=== PATIENT | female | born 1995 | race Caucasian/White ===

== ENCOUNTER 2017-05-15 11:23 | Emergency (ER) | payer MEDICAID, SELFPAY ==
[2017-05-15 11:24] VITALS: BP 108/70; PULSE 130; RESP 14; TEMP 37.2; BMI 25.8
[2017-05-15] MEDS: Ondansetron 4 MG/2 ML Vial IV (12:25)
[2017-05-15] MEDS: 0.9% Normal Saline 1,000 ML 1000 ML IV (12:25)
[2017-05-15 12:55] LABS: Absolute Lymphocyte Count 0.48 X10^3/ul (0.83-4.51); Absolute Neutrophil Count 8.1 X10^3/uL (2.0-7.7); Basophil# 0.01 X10^3/uL; Basophil% 0.1 % (0-1); Eosinophil# 0.01 X10^3/uL; Eosinophils% 0.1 % (0-5); Hematocrit 40.9 % (37-47); Hemoglobin 13.3 g/dl (12.0-15.0); Lymphocyte # 0.48 X10^3/ul (4.0); Lymphocyte % 5.3 % (19-41); Mean Corp Hgb Conc 32.5 g/gl (32-36); Mean Corpuscular Hgb 27.9 pg (27.0-32.0); Mean Corpuscular Volume 85.7 fL (81-99); Mean Platelet Vol. 9.6 fl (6.2-12.0); Monocyte# 0.49 X10^3/uL; Monocyte% 5.4 % (0-10); Neutrophil # 8.07 X10^3/uL (2.7-7.7); Neutrophil % 88.9 % (47-70); Platelet Count 269 K/mm3 (150-450); RBC Distribution Width CV 14.1 % (11.6-14.6); RBC Distribution Width SD 44.1 fl (35.1-43.9); Red Blood Count 4.77 M/mm3 (4.2-5.4); White Blood Count 9.1 K/mm3 (4.4-11.0)
[2017-05-15 12:56] LABS: Differential Indicated SCAN CRITERIA MET; POSITIVE COUNT NO; POSITIVE DIFFERENTIAL YES; POSITIVE MORPHOLOGY NO
[2017-05-15 13:11] LABS: AST(SGOT) 9 U/L (15-37); Alanine Aminotransfer ALT/SGPT 19 U/L (13-56); Albumin, Serum 3.8 g/dL (3.2-5.0); Alkaline Phosphatase 50 U/L (45-117); Anion Gap 8 (5-15); BUN 13 mg/dL (7-18); BUN/Creat Ratio 16.6 RATIO (10-20); Bilirubin, Direct 0.14 mg/dL (0.00-0.30); Calcium,Total 8.9 mg/dL (8.5-10.1); Chloride 108 mmol/L (98-107); Creatinine, Serum 0.78 mg/dL (0.55-1.02); EST Glomerular Filtration Rate 97 mL/min (>60); Est Glom Filt Rate - Afr Amer 117 mL/min (>60); Estimated Creatinine Clearance 117.23 ml/min; Globulin 3.9 g/dL (2.2-4.2); Glucose 91 mg/dL (70-110); Lipase 113 U/L (73-393); Potassium 3.9 mmol/L (3.5-5.1); Protein, Total 7.7 g/dL (6.4-8.2); Sodium Level 141 mmol/L (136-145)
[2017-05-15 13:21] LABS: Pregnancy, Serum, hCG Quali. NEGATIVE Negative (0-9 Nonpreg)
[2017-05-15 13:48] LABS: Mucous, Urine 0 SEEN /hpf (<or=2+); Red Blood Cells-Urine 0 SEEN /hpf (0-5)
[2017-05-15 13:59] LABS: Color, Urine Yellow (Yellow); Glucose, Dipstick Normal (Normal); Ketone-Dipstick 15 mg/dl (Negative); Leukocyte Esterase-Dipstick 25 /ul (Negative); Nitrite-Dipstick Negative (Negative); Occult Blood-Urine Negative /ul (Negative); Protein-Dipstick Negative (Negative); Specific Gravity, Urine 1.015 (1.002-1.030); Urine Bilirubin Dipstick Negative (Negative); Urine Clarity Sl. Cloudy (Clear); Urine Urobilinogen Normal (Normal); Urine pH 6.5 (5.0 - 8.0)
[2017-05-15 14:05] LABS: Bacteria 1+ /hpf (None Seen); Squamous Epithelial Cells - UA 0-5 SEEN /hpf (5-10); White Blood Cells 0-5 SEEN /hpf (0-5)
--- NOTE | 2017-05-15 15:05 | ED.DCSUM_ITS ---
- ER Visit Summary Date of Service: 05/15/17 Chief Complaint: Vomiting/diarrhea History of Present Illness: The patient is a [address] Smith. She reports that she has vomiting diarrhea that began partly 3 AM. She is vomited approximately 12 times without blood. She had 12 episodes of diarrhea. No blood in her stools or black tarry stools. She has diffuse abdominal pain is 910 at worst and 7 out of 10 currently. Is worsened by movement or vomiting. Is relieved by remaining still. Patient has had sick contacts. Has not been camping out of the country. No possible bad food exposure. Does not drink well water. Patient was on Rocephin and Zithromax when she was hospitalized approximately 10 days ago for pneumonia. Physical Examination: Vitals: Stable. Afebrile. General: Well-nourished and well-developed. Head: Normocephalic atraumatic. Neck: Supple, no lymphadenopathy. No JVD. Nontender. Cardiovascular: Regular rate and rhythm. No murmurs. Respiratory: No respiratory distress. Clear to auscultation bilaterally. Abdominal: Soft, mild diffuse tenderness palpation at worst in the epigastric and right upper quadrants, nondistended, normal bowel sounds. No guarding, rebound, or peritoneal signs. Back: Nontender. Extremities: Nontender, no edema. Skin: Normal color, no rash. Neurologic: Alert and oriented ?3. Cranial nerves II through XII are intact. Normal strength and sensation. Psych: Normal affect. Test Results: CBC is marked for 7 neutrophils 89 and lymphocytes of 5. Chem-7 is more for chloride 108. LFTs marked for an AST of 9. Lipase normal. UA is negative. test is negative. Emergency Department Course and Treatment: She is treated with morphine and Zofran. She has had no vomiting or diarrhea while here. She is resting comfortably. Treatment Plan: Patient will be discharged with Zofran. Instructed to follow- up with her primary care physician 1-2 days if not improving. Return to the emergency department for any worsening symptoms. Disposition: To home in improved and stable condition. Impression:. Vomiting/diarrhea. This note was generated with [employer] ([employer]ation software. It may contain incorrect words, spelling, and punctuation that were not noted in review of the chart prior to signing ED Disposition - Plan for ED Patient: Disposition: Home or Assisted Living Chief Complaint: Nausea/Vomiting/Diarrhea Instructions: ED Vomiting Diarrhea Nonspecific Ad Prescriptions: Ondansetron [Zofran Odt] 4 mg PO Q8H PRN PRN #10 tablet PRN Reason: Nausea Referrals: Doctor,Your [STAFF PHYSICIAN] - 1-2 Days if not improving
[2017-05-15 15:21] VITALS: BP 105/59; PULSE 103; RESP 16; O2SAT 99
--- NOTE | 2017-05-15 15:22 | ED.RN ---
REVIEWED D/C INSTRUCTIONS, FOLLOW UP CARE, PRESCRIPTION, AND S/S THAT WOULD WARRANT A RETURN TO THE ED WITH PT. PT VERBALIZED AN UNDERSTANDING AND DENIES FURTHER QUESTIONS FOR THIS RN. PT SKIN P/W/D, RESP EVEN AND UNLABORED, PT A&O X 3, NO DISTRESS NOTED. PT AMBULATED OUT OF ED, GAIT STEADY.
== END 2017-05-15 15:23 | disposition home or self-care (01) ==
LOC: ED 12:44
PROVIDERS: Emergency Provider Emergency Medicine
DX: R19.7 Diarrhea, unspecified (principal); R11.2 Nausea with vomiting, unspecified; K21.9 Gastro-esophageal reflux disease without esophagitis; Z79.899 Other long term (current) drug therapy
CPT/HCPCS: 80048; 80076; 81001; 83690; 84703; 85025; 96361; 96374; 96375; 99283; J7050; A4216; J2405

== ENCOUNTER 2017-07-09 23:29 | Emergency (ER) | payer MEDICAID, SELFPAY ==
[2017-07-09 23:30] VITALS: BP 125/80; PULSE 78; RESP 18; TEMP 36.6; O2SAT 98; BMI 26.5
--- NOTE | 2017-07-09 23:53 | ED.DCSUM_ITS ---
- ER Visit Summary Date of Service: 07/09/17 Chief Complaint: Headache History of Present Illness: The patient is a 22 F 3 day history of migraine headache that has been waxing and waning. States the pain currently is behind her eyes and in the right parietal region. She states normally she just takes Tylenol but tonight she was vomiting and could not keep the Tylenol down. She denies recent head injury or URI symptoms. She states her migraines have been worsening since she started back on Depo shots. Physical Examination: Vital signs are unremarkable. Patient sitting upright in a darkened room. She is in no acute distress is nontoxic appearing. Head and neck examination is unremarkable with no meningismus. Heart is regular rate and rhythm. Lung sounds are clear. Abdomen is soft nontender. Neuro exam reveals normal strength and sensation throughout. Test Results: [] Emergency Department Course and Treatment: Patient was given IV fluids, Tylenol , Compazine, and Benadryl. On repeat evaluation she states her headache resolved she still had mild dystonia from the Compazine. She is given an additional 12.5 mg of Benadryl. On final re-eval patient is resting comfortably. She does report improvement. She will be given Zofran for home and she will use Tylenol as needed. Treatment Plan: [] Disposition: Discharge Impression: Migraine, improved This note was generated with [employer] dictation software. It may contain incorrect words, spelling, and punctuation that were not noted in review of the chart prior to signing ED Disposition - Plan for ED Patient: Chief Complaint: Headache Referrals: [facility] Doctor,Out of [NON-STAFF] -
[2017-07-10] MEDS: Acetaminophen 325 MG Tablet 650 MG PO (00:14)
[2017-07-10] MEDS: DiphenhydrAMINE 50 MG/ML Syringe 25 MG IV (00:14)
[2017-07-10] MEDS: proCHLORPERazine 10 MG/2 ML Vial IV (00:14)
[2017-07-10] MEDS: 0.9% Normal Saline 1,000 ML 999 ML IV (00:14)
[2017-07-10] MEDS: DiphenhydrAMINE 50 MG/ML Syringe 12.5 MG IV (00:30)
--- NOTE | 2017-07-10 01:09 | ED.DEP ---
ED Disposition - Plan for ED Patient: Disposition: Home or Assisted Living Chief Complaint: Headache Instructions: ED Headache Migraine Prescriptions: Ondansetron [Zofran Odt] 4 mg PO Q8H PRN PRN #10 tablet PRN Reason: Nausea Referrals: [facility] Doctor,Out of [NON-STAFF] -
[2017-07-10] MEDS: Ondansetron ODT 4 MG Tablet PO (01:20)
[2017-07-10 01:22] VITALS: BP 107/70; PULSE 78; RESP 16; O2SAT 98
== END 2017-07-10 01:23 | disposition home or self-care (01) ==
PROVIDERS: Emergency Provider Emergency Medicine; Family Provider Nurse Practitioner Family; PCP Nurse Practitioner Family
DX: G43.909 Migraine, unspecified, not intractable, without status migrainosus (principal); J45.909 Unspecified asthma, uncomplicated; K58.9 Irritable bowel syndrome, unspecified; N80.9 Endometriosis, unspecified; Z79.899 Other long term (current) drug therapy
CPT/HCPCS: 96361; 96374; 96375; 99283; J7030

== ENCOUNTER 2017-07-31 13:47 | Emergency (ER) | payer MEDICAID, SELFPAY ==
[2017-07-31 13:50] VITALS: BP 127/82; PULSE 72; RESP 16; TEMP 36.2; O2SAT 98; BMI 26.4
--- NOTE | 2017-07-31 14:06 | ED.VISSUMM ---
- ER Visit Summary Date of Service: 07/31/17 Chief Complaint: Right upper quadrant abdominal pain associated with nausea vomiting and diarrhea. History of Present Illness: The patient is a 22 F male history of endometriosis, irritable bowel disease and reflux. Patient states she was at work today and in the last several hours started having right upper quadrant abdominal pain associated with nausea, vomiting and diarrhea. Did have a small amount of blood mixed with her diarrhea. No hematemesis. No fever. No abdominal trauma. She has had a prior exploratory laparotomy but she still has her appendix and gallbladder. No dysuria. No vaginal bleeding or discharge. Physical Examination: Young female vital signs are stable and afebrile. She does not look septic or toxic. No acute distress. H EENT exam unremarkable. Neck nontender no lymphadenopathy. Lungs clear to auscultation bilaterally. Heart regular rhythm no murmur. Abdomen soft mild epigastric and right upper quadrant tenderness. No Snell sign. Normal bowel sounds nondistended. No hernias or masses. Right lower quadrant completely nontender. No signs of obstruction. Moving all 4 extremities. Back exam nontender no CVA tenderness. Neurologically she is awake and alert without focal motor deficits. Test Results: CBC normal. White count of 8. Chemistries normal. Normal BUN and creatinine. Liver enzymes normal. Lipase normal. Serum test negative. Emergency Department Course and Treatment: Patient will undergo a GI workup. She will receive IV fluids, morphine and Zofran. Treatment Plan: On repeat exam at 1618 the patient is doing well. Abdomen is completely benign. Nontender without peritoneal signs she is pain-free. She is no longer nauseated nor vomiting. Disposition: Discharge Impression: Acute abdominal pain Acute nausea, vomiting diarrhea secondary to viral syndrome This note was generated with [employer] software. It may contain incorrect words, spelling, and punctuation that were not noted in review of the chart prior to signing ED Disposition - Plan for ED Patient: Chief Complaint: Abd Pain Referrals: Maira Posadas NP-C [Primary Care Provider] -
[2017-07-31] MEDS: Ondansetron 4 MG/2 ML Vial IV (14:17)
[2017-07-31] MEDS: 0.9% Normal Saline 1,000 ML 1000 ML IV (14:17)
[2017-07-31] MEDS: Morphine 4 MG/ML Syringe 6 MG IV (14:17)
[2017-07-31 14:31] LABS: Basophil# 0.05 X10^3/uL; Basophil% 0.6 % (0-1); Eosinophil# 0.11 X10^3/uL; Eosinophils% 1.3 % (0-5); Hematocrit 39.5 % (37-47); Hemoglobin 12.9 g/dl (12.0-15.0); Lymphocyte % 30.9 % (19-41); Mean Corp Hgb Conc 32.7 g/gl (32-36); Mean Corpuscular Hgb 27.8 pg (27.0-32.0); Mean Corpuscular Volume 85.1 fL (81-99); Mean Platelet Vol. 9.2 fl (6.2-12.0); Monocyte% 7.1 % (0-10); Neutrophil # 5.04 X10^3/uL (2.7-7.7); Neutrophil % 59.9 % (47-70); Platelet Count 302 K/mm3 (150-450); RBC Distribution Width CV 13.7 % (11.6-14.6); RBC Distribution Width SD 42.9 fl (35.1-43.9); Red Blood Count 4.64 M/mm3 (4.2-5.4); White Blood Count 8.4 K/mm3 (4.4-11.0)
[2017-07-31 14:32] LABS: POSITIVE COUNT NO; POSITIVE DIFFERENTIAL NO; POSITIVE MORPHOLOGY NO
[2017-07-31 14:46] LABS: AST(SGOT) 11 U/L (15-37); Alanine Aminotransfer ALT/SGPT 15 U/L (13-56); Albumin, Serum 4.1 g/dL (3.2-5.0); Alkaline Phosphatase 52 U/L (45-117); Anion Gap 8 (5-15); BUN 11 mg/dL (7-18); Bilirubin, Direct 0.06 mg/dL (0.00-0.30); Calcium,Total 8.5 mg/dL (8.5-10.1); Chloride 107 mmol/L (98-107); Creatinine, Serum 0.79 mg/dL (0.55-1.02); EST Glomerular Filtration Rate 96 mL/min (>60); Est Glom Filt Rate - Afr Amer 116 mL/min (>60); Estimated Creatinine Clearance 115.75 ml/min; Glucose 75 mg/dL (74-106); Lipase 178 U/L (73-393); Potassium 3.6 mmol/L (3.5-5.1); Protein, Total 8.1 g/dL (6.4-8.2); Sodium Level 140 mmol/L (136-145)
[2017-07-31 14:50] LABS: Pregnancy, Serum, hCG Quali. NEGATIVE Negative (0-9 Nonpreg)
--- NOTE | 2017-07-31 16:20 | DCINST.ED_ITS ---
ED Disposition - Plan for ED Patient: Disposition: Home or Assisted Living Chief Complaint: Abd Pain Instructions: ED Abdominal Pain Unkn Cause Referrals: Maira Posadas NP-C [Primary Care Provider] - 3-5 Days if not improving Additional Instructions: Fluids and rest. [place] diet increase as tolerated. Return if unable to keep fluids down or worsening abdominal pain. All your lab tests were normal today in the ER
[2017-07-31 16:46] VITALS: BP 114/74; PULSE 79; RESP 16; O2SAT 97
--- NOTE | 2017-07-31 16:47 | ED.RN ---
PT DECLINED PO CHALLENGE. PT STATES MY RIDE IS ON THE WAY. I THINK I'M OK. THIS NURSE REVIEWED D/C INSTRUCTIONS WITH PT. PT VERBALIZED UNDERSTANDING OF INSTRUCTIONS. IV D/C. IV CATHETER INTACT. PT TOLERATED WELL. PT DENIES FURTHER NEEDS OR QUESTIONS AT THIS TIME. PT AMBULATES FROM ROOM ON OWN WITHOUT ASSISTANCE FROM STAFF
== END 2017-07-31 16:48 | disposition home or self-care (01) ==
PROVIDERS: Emergency Provider Emergency Medicine; Family Provider Nurse Practitioner Family; PCP Nurse Practitioner Family
DX: R10.13 Epigastric pain (principal); R10.11 Right upper quadrant pain; R11.2 Nausea with vomiting, unspecified; B34.9 Viral infection, unspecified; K58.0 Irritable bowel syndrome with diarrhea; K21.9 Gastro-esophageal reflux disease without esophagitis; Z79.899 Other long term (current) drug therapy
CPT/HCPCS: 80048; 80076; 83690; 84703; 85025; 96361; 96374; 96375; 99283; J7030; A4216; J2405

== ENCOUNTER 2017-08-25 10:38 | Emergency (ER) | payer MEDICAID, SELFPAY ==
[2017-08-25 10:40] VITALS: BP 122/75; PULSE 78; RESP 14; TEMP 36.9; O2SAT 98; BMI 26.4
--- NOTE | 2017-08-25 11:06 | ED.VISSUMM ---
- ER Visit Summary Date of Service: 08/25/17 Chief Complaint: Headache History of Present Illness: The patient is a 22 F headache and started gradually yesterday afternoon. This is right frontal and feels like prior migraines. Worse with lights. Better with Zofran. She did have one episode of nausea and vomiting. She did notice some blood in the emesis. She has a history of acid reflux. Denies any history of liver disease. Denies ulcers or abdominal pain. Denies blood in her stool. Denies blood thinner use. Denies trauma. Denies new weakness or numbness. Physical Examination: Afebrile and vital signs unremarkable. Sitting comfortably in the dark. HEENT exam unremarkable and atraumatic. Neck nontender with good range of motion. Neurologic testing unremarkable and no focal or lateralizing abnormalities were noted. Heart regular. Lungs clear. Abdomen soft. Skin appears normal without pallor. Test Results: CBC pending. Emergency Department Course and Treatment: Treated with fluids, Benadryl, and Compazine. She tolerated this in the past. There is no indication for imaging of her head. I have low suspicion regarding significant pathology given her nausea with vomiting and blood. Will check a CBC. Will reassess. She had a recent EGD within the last couple months and is being treated for acid reflux with Prilosec once a day. Patient felt better on reassessment. CBC normal. Patient will follow up with her primary doctor for migraines. She will also follow-up with her GI doctor continue medications as prescribed. Return for any new or worsening issues. Treatment Plan: Discharged Disposition:Discharged Impression: 1. Acute headache This note was generated with [employer] dictation software. It may contain incorrect words, spelling, and punctuation that were not noted in review of the chart prior to signing ED Disposition - Plan for ED Patient: Chief Complaint: Headache Referrals: Maira Posadas NP-C [Primary Care Provider] -
[2017-08-25] MEDS: proCHLORPERazine 10 MG/2 ML Vial IV (11:14)
[2017-08-25] MEDS: DiphenhydrAMINE 50 MG/ML Syringe IV (11:14)
[2017-08-25] MEDS: 0.9% Normal Saline 1,000 ML 1000 ML IV (11:14)
[2017-08-25 11:27] LABS: Absolute Lymphocyte Count 2.48 X10^3/ul (0.83-4.51); Basophil# 0.03 X10^3/uL; Basophil% 0.5 % (0-1); Eosinophils% 1.6 % (0-5); Hematocrit 40.6 % (37-47); Hemoglobin 13.5 g/dl (12.0-15.0); Lymphocyte # 2.48 X10^3/ul (4.0); Lymphocyte % 40.3 % (19-41); Mean Corp Hgb Conc 33.3 g/gl (32-36); Mean Corpuscular Volume 84.2 fL (81-99); Monocyte# 0.49 X10^3/uL; Neutrophil # 3.04 X10^3/uL (2.7-7.7); Neutrophil % 49.3 % (47-70); Platelet Count 304 K/mm3 (150-450); RBC Distribution Width CV 13.5 % (11.6-14.6); RBC Distribution Width SD 41.5 fl (35.1-43.9); Red Blood Count 4.82 M/mm3 (4.2-5.4); White Blood Count 6.2 K/mm3 (4.4-11.0)
[2017-08-25 11:28] LABS: Differential Indicated SCAN CRITERIA MET; POSITIVE COUNT NO; POSITIVE DIFFERENTIAL NO; POSITIVE MORPHOLOGY YES
--- NOTE | 2017-08-25 12:29 | ED.DEP ---
ED Disposition - Plan for ED Patient: Chief Complaint: Headache Instructions: ED Headache Migraine Referrals: Maira Posadas NP-C [Primary Care Provider] -
[2017-08-25 12:46] VITALS: BP 116/76; PULSE 82; RESP 14; O2SAT 98
== END 2017-08-25 12:46 | disposition home or self-care (01) ==
LOC: ED 11:00
PROVIDERS: Emergency Provider Emergency Medicine; Family Provider Nurse Practitioner Family; PCP Nurse Practitioner Family
DX: R51 Headache (principal); K21.9 Gastro-esophageal reflux disease without esophagitis; K58.9 Irritable bowel syndrome, unspecified; Z79.899 Other long term (current) drug therapy
CPT/HCPCS: 85025; 96361; 96374; 96375; 99283; J7030; A4216

== ENCOUNTER 2017-09-11 18:30 | Emergency (ER) | payer MEDICAID, SELFPAY ==
[2017-09-11 18:32] VITALS: BP 126/87; PULSE 93; RESP 18; TEMP 36.9; O2SAT 99; BMI 27.0
--- NOTE | 2017-09-11 18:59 | ED.DCSUM_ITS ---
- ER Visit Summary Date of Service: 09/11/17 Chief Complaint: [Insect bite] History of Present Illness: The patient is a 22 F [presents the emergency department with some sort of a bite to her left lower extremity that she noticed 2 days ago. Patient is not sure what may have bitten her. Patient is noticed that she has had increased erythema today. Patient has not felt well for a couple of days also she had vomiting 2 days ago that lasted for about 20 minutes and then resolved. She has had some intermittent diarrhea but she has a history of irritable bowel syndrome she says that happens sometimes. Patient complains of some fatigue and some intermittent headaches.] Physical Examination: [HEENT-PERRLA, EOMI. Cranial nerves II through XII grossly intact. TMs clear. Mucous membranes moist. No adenopathy. Cardiovascular-regular rate and rhythm without murmur or ectopy Lungs-clear to auscultation, chest wall stable without crepitus or subcu emphysema Abdomen-normoactive bowel sounds, soft, nontender, no rebound or rigidity, no peritoneal signs. Extremities-intact ?4, normal range of motion, normal pulses, atraumatic]. Left leg-patient has a circular area of erythema to the left lower leg measuring approximately 4 cm in diameter. Central portion of erythema slightly indurated. There is no fluctuance. There are no bull's-eye lesions. No lymphangitic streaking noted. Test Results: [None indicated] Emergency Department Course and Treatment: [Patient was started on Keflex and Bactrim. Patient advised to use Tylenol for discomfort.] Treatment Plan: [Treat with Keflex and Bactrim] Disposition: [Discharged home stable condition] Impression: [Insect bite with cellulitis] This note was generated with [employer] dictation software. It may contain incorrect words, spelling, and punctuation that were not noted in review of the chart prior to signing ED Disposition - Plan for ED Patient: Chief Complaint: Bite Referrals: Maira Posadas NP-C [Primary Care Provider] -
--- NOTE | 2017-09-11 19:00 | ED.DEP ---
ED Disposition - Plan for ED Patient: Chief Complaint: Bite Instructions: ED Sting Bite Insect Infec Prescriptions: Cephalexin [Keflex] 500 mg PO Q6 #40 cap Smz/Tmp Ds [Bactrim Ds] 1 tab PO BID #20 tab Referrals: Maira Posadas, UNIFORM ATTENDANT-C [Primary Care Provider] - 3-5 Days
[2017-09-11] MEDS: Cephalexin 250 MG Capsule 500 MG PO (19:11)
[2017-09-11] MEDS: Smz/Tmp Ds Tablet 1 TABLET PO (19:11)
== END 2017-09-11 19:16 | disposition home or self-care (01) ==
LOC: ED 19:07
PROVIDERS: Emergency Provider Emergency Medicine; Family Provider Nurse Practitioner Family; PCP Nurse Practitioner Family
DX: S80.862A Insect bite (nonvenomous), left lower leg, initial encounter (principal); L03.116 Cellulitis of left lower limb; R53.83 Other fatigue; R51 Headache; K58.9 Irritable bowel syndrome, unspecified; N80.9 Endometriosis, unspecified
CPT/HCPCS: 99283

== ENCOUNTER 2017-10-11 12:55 | Emergency (ER) | payer MEDICAID, SELFPAY ==
[2017-10-11 12:56] VITALS: BP 119/75; PULSE 89; RESP 16; TEMP 37.3; O2SAT 98; BMI 26.6
[2017-10-11] MEDS: diazePAM 5 MG Tablet PO (13:46)
[2017-10-11] MEDS: Ondansetron 4 MG/2 ML Vial IV ×2 (13:47→15:49)
[2017-10-11] MEDS: 0.9% Normal Saline 1,000 ML 1000 ML IV (13:47)
[2017-10-11 13:56] LABS: Absolute Lymphocyte Count 3.19 X10^3/ul (0.83-4.51); Absolute Neutrophil Count 3.7 X10^3/uL (2.0-7.7); Basophil# 0.03 X10^3/uL; Basophil% 0.4 % (0-1); Eosinophil# 0.08 X10^3/uL; Hematocrit 38.5 % (37-47); Hemoglobin 12.5 g/dl (12.0-15.0); Lymphocyte # 3.19 X10^3/ul (4.0); Lymphocyte % 41.4 % (19-41); Mean Corp Hgb Conc 32.5 g/gl (32-36); Mean Corpuscular Hgb 27.3 pg (27.0-32.0); Mean Corpuscular Volume 84.1 fL (81-99); Mean Platelet Vol. 9.1 fl (6.2-12.0); Monocyte# 0.66 X10^3/uL; Monocyte% 8.6 % (0-10); Neutrophil # 3.73 X10^3/uL (2.7-7.7); Neutrophil % 48.3 % (47-70); Platelet Count 265 K/mm3 (150-450); RBC Distribution Width CV 13.5 % (11.6-14.6); RBC Distribution Width SD 41.1 fl (35.1-43.9); Red Blood Count 4.58 M/mm3 (4.2-5.4); White Blood Count 7.7 K/mm3 (4.4-11.0)
[2017-10-11 13:57] LABS: POSITIVE COUNT NO; POSITIVE DIFFERENTIAL NO; POSITIVE MORPHOLOGY NO
[2017-10-11 14:08] LABS: Anion Gap 6 (5-15); BUN 10 mg/dL (7-18); BUN/Creat Ratio 13.1 RATIO (10-20); Chloride 109 mmol/L (98-107); Creatinine, Serum 0.76 mg/dL (0.55-1.02); EST Glomerular Filtration Rate 99 mL/min (>60); Est Glom Filt Rate - Afr Amer 120 mL/min (>60); Estimated Creatinine Clearance 120.31 ml/min; Glucose 84 mg/dL (74-106); Potassium 3.8 mmol/L (3.5-5.1); Sodium Level 140 mmol/L (136-145)
[2017-10-11 14:14] LABS: Pregnancy, Serum, hCG Quali. NEGATIVE Negative (0-9 Nonpreg)
[2017-10-11] MEDS: 0.9% Normal Saline 1,000 ML 150 ML IV (15:03)
--- NOTE | 2017-10-11 15:22 | ED.VISSUMM ---
- ER Visit Summary Date of Service: 10/11/17 Chief Complaint: Nausea, dizziness History of Present Illness: The patient is a 22 F with a history of right peripheral vestibular disorder resulting in occasional vertigo. Patient complains of nausea and dizziness for the past 2-3 days, but states this morning the symptoms were significantly worse. She describes the dizziness as both lightheadedness and spinning sensation. She also feels like she is going to have a panic attack. Past history significant for asthma, endometriosis, IBS, PTSD, anxiety, depression. Allergy list does include Reglan, Compazine, and Phenergan. Physical Examination: Vital signs are unremarkable. Patient sitting upright in bed no acute distress. Head neck examination is grossly unremarkable. Heart is regular rate and rhythm. Lung sounds are clear. Abdomen is soft nontender. Neuro exam reveals no focal deficits. Test Results: CBC and chemistry studies are unremarkable. test negative. Emergency Department Course and Treatment: Patient is given IV fluids along with Zofran and p.o. Valium. On repeat evaluation she states her nausea was improved but is starting to return. Her dizziness is significantly improved. She will be given a prescription for Zofran and Valium at home. Treatment Plan: [] Disposition: Discharge Impression: Vertigo, improved This note was generated with [employer] dictation software. It may contain incorrect words, spelling, and punctuation that were not noted in review of the chart prior to signing ED Disposition - Plan for ED Patient: Chief Complaint: Dizziness Referrals: Maira Posadas NP-C [Primary Care Provider] -
--- NOTE | 2017-10-11 15:24 | ED.DEP ---
ED Disposition - Plan for ED Patient: Disposition: Home or Assisted Living Chief Complaint: Dizziness Instructions: ED Vertigo Unspecified Prescriptions: Ondansetron [Zofran Odt] 4 mg PO Q8H PRN PRN #10 tab PRN Reason: Nausea Diazepam [Valium] 5 mg PO Q8 PRN #10 tablet PRN Reason: Vertigo Referrals: Maira Posadas NP-C [Primary Care Provider] - 3-5 Days if not improving
[2017-10-11 16:12] VITALS: BP 111/70; PULSE 75; RESP 18; O2SAT 99
== END 2017-10-11 16:21 | disposition home or self-care (01) ==
PROVIDERS: Emergency Provider Emergency Medicine; Family Provider Nurse Practitioner Family; PCP Nurse Practitioner Family
DX: R42 Dizziness and giddiness (principal); N80.9 Endometriosis, unspecified
CPT/HCPCS: 80048; 84703; 85025; 96361; 96374; 96376; 99285; J7030; A4216; J2405

== ENCOUNTER 2018-01-04 21:45 | Emergency (ER) | payer MEDICAID, SELFPAY ==
[2018-01-04 21:45] VITALS: BP 129/82; PULSE 88; RESP 14; TEMP 36.8; O2SAT 98; BMI 27.6
[2018-01-04] MEDS: Ondansetron ODT 4 MG Tablet PO (22:54)
[2018-01-04] MEDS: diazePAM 5 MG Tablet 2.5 MG PO (22:59)
--- NOTE | 2018-01-04 23:56 | ED.VISSUMM ---
- ER Visit Summary Date of Service: 01/04/18 Chief Complaint: Dizzy spells History of Present Illness: The patient is a 22 F with a history of a peripheral vestibular disorder. She has had prior episodes of vertigo. She states she began to have dizzy spells beginning yesterday which were initially only 1-2 seconds but is more persistent today. She states she feels like her head is spinning. She vomited once. She also states that this is triggering significant anxiety and she does have a history of PTSD. Physical Examination: Afebrile vitals are stable Moist mucous members Heart regular rate and rhythm Lungs are clear Abdomen soft Alert oriented with no focal or lateralizing neurological deficits Test Results: Not indicated Emergency Department Course and Treatment: Patient was treated here with Zofran and Valium. She has had no further vomiting. She did still complain of some nausea on reevaluation. She does report that her dizziness is improved but not resolved. She was offered further antiemetics but notes that she cannot really take any other medications such as Compazine or Phenergan as this is because suicidal thoughts in the past. She will be given a prescription for Antivert for home. She was advised to follow-up with her primary care physician or to return for new or worsening symptoms. All questions answered bedside patient discharged. Treatment Plan: [] Disposition: Discharge Impression: Vertigo Anxiety This note was generated with [employer] dictation software. It may contain incorrect words, spelling, and punctuation that were not noted in review of the chart prior to signing ED Disposition - Plan for ED Patient: Chief Complaint: Dizziness Referrals: Maira Posadas NP-C [Primary Care Provider] -
--- NOTE | 2018-01-04 23:58 | ED.DEP ---
ED Disposition - Plan for ED Patient: Chief Complaint: Dizziness Instructions: ED Vertigo Unspecified Prescriptions: Meclizine HCl [Antivert] 25 mg PO 4X/DAY PRN PRN #20 tab PRN Reason: Dizziness Referrals: Maira Posadas NP-C [Primary Care Provider] -
[2018-01-05 00:31] VITALS: BP 117/80; PULSE 70; RESP 15; O2SAT 100
== END 2018-01-05 00:32 | disposition home or self-care (01) ==
LOC: ED 23:08
PROVIDERS: Emergency Provider Emergency Medicine; Family Provider Nurse Practitioner Family; PCP Nurse Practitioner Family
DX: R42 Dizziness and giddiness (principal); F41.9 Anxiety disorder, unspecified
CPT/HCPCS: 99283; J7030

== ENCOUNTER 2018-04-25 04:23 | Emergency (ER) | payer MEDICAID, SELFPAY ==
[2018-04-25 04:23] VITALS: BMI 25.8
[2018-04-25 04:24] VITALS: BP 122/79; PULSE 78; RESP 16; TEMP 37.2; O2SAT 99; BMI 28.6
[2018-04-25 04:32] VITALS: BP 108/76; BP 118/83; PULSE 70; PULSE 94
--- NOTE | 2018-04-25 04:46 | EKG12_ITS ---
Test Reason : SYNCOPE Blood Pressure : / mmHG Vent. Rate : 074 BPM Atrial Rate : 074 BPM P-R Int : 134 ms QRS Dur : 092 ms QT Int : 386 ms P-R-T Axes : 059 052 006 degrees QTc Int : 428 ms Normal sinus rhythm Normal ECG Confirmed by ROSA MARIA WILCOX, FELI ([id number]), editor trade journal BRITANY FRANKS ([id number]) on 04/28/2018 4:39:22 PM Referred By: APRIL Confirmed By:FELI CRANE MD
[2018-04-25] MEDS: 0.9% Normal Saline 1,000 ML 1000 ML IV (05:14)
[2018-04-25] MEDS: Ondansetron 4 MG/2 ML Vial IV (06:03)
--- NOTE | 2018-04-25 06:03 | ED.VISSUMM ---
- ER Visit Summary Date of Service: 04/25/18 Chief Complaint: Syncope History of Present Illness: The patient is a 23 F presenting for evaluation secondary to syncope. 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 She reports that this was associated with a syncopal episode. Patient denies that there was prolonged loss of consciousness. When she awoke, she states that she felt generally ill. She was then seated again and had a second syncopal episode with the same prodrome. She denies any chest pain palpitations. She denies any recent illnesses such as nausea vomiting diarrhea or fevers. She denies any family history of cardiac arrhythmias. She denies any DVT or PE risk factors other than the fact that she gets Depo-Provera. Physical Examination: Vital signs are within normal limits, patient is afebrile. General: Patient is well-nourished well-developed and in no acute distress. Head: Normocephalic, atraumatic Eyes: Pupils equal round and reactive bilaterally, extra occular motion intact bialterally ENT: Moist mucous membranes Neck: Supple, no lymphadenopathy, no JVD, no meningismus CVS: Heart regular rate and rhythm, no murmurs, rubs or gallops, radial pulses 2+ bilaterally Resp: Respirations nondistressed, lung sounds clear bilaterally Abdomen: Soft, nontender, nondistended, no palpable masses, normal bowel sounds Back: Nontender Extremities: Nontender, atraumatic, active full range of motion, no peripheral edema Skin: warm, no rashes, no petechia Neuro: Alert and oriented x 4, CN 2-12 intact, no lateralizing neurological defecits Psyc: Normal affect Test Results: EKG shows sinus rhythm [address] segments normal T waves normal [place] and QTC intervals no evidence of WPW or Brugada morphology. CBC chemistry troponin d-dimer and hCG all found to be negative Emergency Department Course and Treatment: Patient presented for evaluation secondary to a syncopal episode. Patient was given a liter normal saline and Zofran. Patient's workup as noted above was found to be negative. I do not believe that she refer requires further workup, she is [place] syncope negative. She had improvement with saline and Zofran. Patient likely had a vagal episode. She will be discharged with a course of Zofran. Disposition: Discharge Impression: 1. Vasovagal syncope This note was generated with [employer] dictation software. It may contain incorrect words, spelling, and punctuation that were not noted in review of the chart prior to signing ED Disposition - Plan for ED Patient: Chief Complaint: Syncope Diagnosis: Vasovagal syncope Instructions: ED Syncope Vasovagal Prescriptions: Ondansetron [Zofran Odt] 4 mg PO Q8H PRN PRN #10 tab PRN Reason: Nausea Referrals: Jacky Preciado, ASSISTANT CONTROLLER-C [Primary Care Provider] - 3-5 Days if not improving
[2018-04-25 06:06] LABS: Anion Gap 11 (5-15); BUN 11 mg/dL (7-18); BUN/Creat Ratio 14.9 RATIO (10-20); Calcium,Total 8.6 mg/dL (8.5-10.1); Chloride 111 mmol/L (98-107); Creatinine, Serum 0.74 mg/dL (0.55-1.02); EST Glomerular Filtration Rate 103 mL/min (>60); Est Glom Filt Rate - Afr Amer 124 mL/min (>60); Estimated Creatinine Clearance 122.51 ml/min; Glucose 86 mg/dL (74-106); Potassium 3.5 mmol/L (3.5-5.1); Sodium Level 142 mmol/L (136-145)
--- NOTE | 2018-04-25 06:06 | ED.DCSUM_ITS ---
- ER Visit Summary Date of Service: 04/25/18 Chief Complaint: Syncope History of Present Illness: The patient is a 23 F presenting for evaluation secondary to syncope. 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 She reports that this was associated with a syncopal episode. Patient denies that there was prolonged loss of consciousness. When she awoke, she states that she felt generally ill. She was then seated again and had a second syncopal episode with the same prodrome. She denies any chest pain palpitations. She denies any recent illnesses such as nausea vomiting diarrhea or fevers. She denies any family history of cardiac arrhythmias. She denies any DVT or PE risk factors other than the fact that she gets Depo-Provera. Physical Examination: Vital signs are within normal limits, patient is afebrile. General: Patient is well-nourished well-developed and in no acute distress. Head: Normocephalic, atraumatic Eyes: Pupils equal round and reactive bilaterally, extra occular motion intact bialterally ENT: Moist mucous membranes Neck: Supple, no lymphadenopathy, no JVD, no meningismus CVS: Heart regular rate and rhythm, no murmurs, rubs or gallops, radial pulses 2+ bilaterally Resp: Respirations nondistressed, lung sounds clear bilaterally Abdomen: Soft, nontender, nondistended, no palpable masses, normal bowel sounds Back: Nontender Extremities: Nontender, atraumatic, active full range of motion, no peripheral edema Skin: warm, no rashes, no petechia Neuro: Alert and oriented x 4, CN 2-12 intact, no lateralizing neurological defecits Psyc: Normal affect Test Results: EKG shows sinus rhythm [address] segments normal T waves normal [place] and QTC intervals no evidence of WPW or Brugada morphology. CBC chemistry troponin d-dimer and hCG all found to be negative Emergency Department Course and Treatment: Patient presented for evaluation secondary to a syncopal episode. Patient was given a liter normal saline and Zofran. Patient's workup as noted above was found to be negative. I do not believe that she refer requires further workup, she is [place] syncope negative. She had improvement with saline and Zofran. Patient likely had a vagal episode. She will be discharged with a course of Zofran. Disposition: Discharge Impression: 1. Vasovagal syncope This note was generated with [employer] dictation software. It may contain incorrect words, spelling, and punctuation that were not noted in review of the chart prior to signing ED Disposition - Plan for ED Patient: Chief Complaint: Syncope Diagnosis: Vasovagal syncope Instructions: ED Syncope Vasovagal Prescriptions: Ondansetron [Zofran Odt] 4 mg PO Q8H PRN PRN #10 tab PRN Reason: Nausea Referrals: Jacky Preciado, SENIOR CENTER DIRECTOR-C [Primary Care Provider] - 3-5 Days if not improving
[2018-04-25 06:42] LABS: D-Dimer Quantitative (DVT/PE) 0.34 FEU/ug/m (0.27-0.49)
[2018-04-25 06:45] VITALS: BP 106/81; BP 112/80; BP 117/77; PULSE 72; PULSE 76; PULSE 82
[2018-04-25 06:53] VITALS: BP 106/81; PULSE 63; RESP 16; O2SAT 99
[2018-04-25 07:08] LABS: Pregnancy, Serum, hCG Quali. NEGATIVE Negative (0-9 Nonpreg)
[2018-04-25 07:09] LABS: Absolute Lymphocyte Count 2.67 X10^3/ul (0.83-4.51); Absolute Neutrophil Count 5.2 X10^3/uL (2.0-7.7); Basophil# 0.04 X10^3/uL; Basophil% 0.4 % (0-1); Eosinophil# 0.12 X10^3/uL; Eosinophils% 1.3 % (0-5); Hematocrit 38.9 % (37-47); Hemoglobin 12.8 g/dl (12.0-15.0); Lymphocyte # 2.67 X10^3/ul (4.0); Lymphocyte % 29.9 % (19-41); Mean Corp Hgb Conc 32.9 g/gl (32-36); Mean Corpuscular Hgb 27.5 pg (27.0-32.0); Mean Corpuscular Volume 83.5 fL (81-99); Mean Platelet Vol. 9.7 fl (6.2-12.0); Monocyte# 0.87 X10^3/uL; Monocyte% 9.7 % (0-10); Neutrophil % 58.3 % (47-70); Platelet Count 269 K/mm3 (150-450); RBC Distribution Width CV 14.2 % (11.6-14.6); RBC Distribution Width SD 43.3 fl (35.1-43.9); Red Blood Count 4.66 M/mm3 (4.2-5.4); White Blood Count 8.9 K/mm3 (4.4-11.0)
[2018-04-25 07:10] LABS: POSITIVE COUNT NO; POSITIVE DIFFERENTIAL NO; POSITIVE MORPHOLOGY NO
[2018-04-25 07:26] VITALS: BP 105/75; PULSE 69; RESP 17; O2SAT 97
== END 2018-04-25 07:33 | disposition home or self-care (01) ==
PROVIDERS: Emergency Provider Emergency Medicine; Family Provider Nurse Practitioner Family; PCP Nurse Practitioner Family
DX: R55 Syncope and collapse (principal); K21.9 Gastro-esophageal reflux disease without esophagitis; F32.9 Major depressive disorder, single episode, unspecified; F43.10 Post-traumatic stress disorder, unspecified; Z79.899 Other long term (current) drug therapy
CPT/HCPCS: 36415; 80048; 84484; 84703; 85025; 85379; 93005; 96361; 96374; 99285; J7030; A4216; J2405

== ENCOUNTER 2018-08-13 21:27 | Emergency (ER) | payer OTHER, SELFPAY ==
[2018-08-13 21:29] VITALS: BP 132/82; PULSE 105; RESP 16; TEMP 36.6; O2SAT 98; BMI 28.3
[2018-08-13] MEDS: 0.9% Normal Saline 1,000 ML 1000 ML IV (22:52)
[2018-08-13] MEDS: Ondansetron 4 MG/2 ML Vial IV (22:52)
[2018-08-13 23:03] LABS: Internal QC Validated? YES +Cl - CLEAR BKGD; Pregnancy, Serum, hCG Quali. NEGATIVE Negative
[2018-08-13 23:10] LABS: Red Blood Cells-Urine 0 SEEN /hpf (0-5)
[2018-08-13 23:11] LABS: Color, Urine Yellow (Yellow); Glucose, Dipstick Normal (Normal); Ketone-Dipstick 5 mg/dl (Negative); Leukocyte Esterase-Dipstick 500 /ul (Negative); Nitrite-Dipstick Negative (Negative); Occult Blood-Urine Negative /ul (Negative); Protein-Dipstick 30 mg/dl (Negative); Specific Gravity, Urine 1.015 (1.002-1.030); Urine Bilirubin Dipstick Negative (Negative); Urine Clarity Clear (Clear); Urine Urobilinogen Normal (Normal); Urine pH 6.5 (5.0 - 8.0)
[2018-08-13 23:16] LABS: Mucous, Urine 1+ /hpf (<or=2+); White Blood Cells 5-10 SEEN /hpf (0-5)
[2018-08-13 23:17] LABS: Bacteria RARE /hpf (None Seen); Squamous Epithelial Cells - UA 0-5 SEEN /hpf (5-10)
--- NOTE | 2018-08-13 23:34 | ED.DCSUM_ITS ---
- ER Visit Summary Date of Service: 08/13/18 Chief Complaint: Diarrhea History of Present Illness: The patient is a 23 F who presents with diarrhea. Her symptoms started this morning. This is nonbloody. Associated with nausea, vomiting, and epigastric pain. Worse with food. Patient has a history of acid reflux and gastritis. Denies any history of hepatobiliary disease or pancreatic disease. She does have a history of endometriosis and IBS. Denies fevers. Denies any urinary symptoms. Denies travel or recent antibiotics. Physical Examination: Afebrile and vital signs unremarkable. Patient appears uncomfortable but not toxic or in distress. Skin normal in color without pallor or jaundice. Heart regular rate and rhythm. Lungs clear bilaterally. Abdomen is tender in the epigastric region. Negative Snell sign. No guarding or rebound. Test Results: test negative. Urinalysis showed 500 leuk esterase, 5- 10 white cells and rare bacteria. Emergency Department Course and Treatment: Patient was treated with fluids and Zofran. She had improvement of her nausea. She continued to have epigastric pain. Given her history of gastritis and reflux, she was treated with a GI cocktail. Will reassess. Patient had continued abdominal pain. She was not responsive to our treatments. Will check labs and CT. She was treated with fentanyl while awaiting results. Oncoming doctor will check the results of the CT. If unremarkable, patient will be discharged with nausea meds and antibiotics for a possible UTI. Follow-up with primary care for recheck. Treatment Plan: As above Disposition: Discharge pending labs and CT results Impression: 1. Nausea, vomiting, diarrhea 2. Epigastric pain 3. UTI This note was generated with Conjecturation software. It may contain incorrect words, spelling, and punctuation that were not noted in review of the chart prior to signing ED Disposition - Plan for ED Patient: Referrals: Jacky Preciado, ZAYRA-C [Primary Care Provider] -
[2018-08-13] MEDS: Mag Hydrox/Al Hydrox/Simeth 30 ML UDC PO (23:35)
--- NOTE | 2018-08-14 00:10 | CT_ITS ---
HISTORY: ABDOMEN PAIN,NAUSEA,VOMITING AND DIARRHEA TONIGHTHX:IBS,ENDOMETRIOSIS EXAMINATION: CT Abdomen And Pelvis W/ Contrast TECHNIQUE: Helically acquired images were obtained of the abdomen and pelvis following IV contrast. A radiation dose optimization technique was used for this scan. IV Contrast dosage and agent: 100ML Isovue 300 Oral contrast: None. COMPARISON: None FINDINGS: Lower thorax: Clear. No pleural effusion. The gallbladder fundus appears partly septated, a developmental variant. No gallstones or biliary dilatation seen. Normal liver, spleen, and pancreas. Both kidneys are normal in position. Bilateral renal opacification without evidence of hydronephrosis, pyelonephritis, or suspicious renal lesion. Adrenal glands are not enlarged. Normal abdominal aorta and IVC. No ascites or retroperitoneal lymph node enlargement. GI tract: Low cecum with retro-cecal appendix which appears normal. No obstruction. Pelvis: Retroverted uterus. No free fluid or lymph node enlargement. Urinary bladder is poorly distended. CT/Abdomen/Pelvis W IV Cont ONLY IMPRESSION: 1. No bowel obstruction, free fluid, or acute abdominal disease identified. Normal appendix. Individualized dose optimization techniques were used for this CT. at 0239 Reported and signed by: Kev Araujo MD Electronically Signed: Kev Araujo, at 2:38 EDT Tel , Service support ,
[2018-08-14] MEDS: fentaNYL 100 MCG/2 ML Ampul 50 MCG IV (00:31)
--- NOTE | 2018-08-14 00:34 | ED.RN ---
2355 answered pt's call lara and she was c/o her abdomen hurting and felt that she was going to vomit.pt has a emesis bag and encouraged to do so if it makes her feel better. made aware.
--- NOTE | 2018-08-14 00:36 | DCINST.ED_ITS ---
ED Disposition - Plan for ED Patient: Instructions: ED Vomiting Diarrhea Nonspecific Ad Prescriptions: Ondansetron [Zofran Odt] 4 mg PO Q8H PRN PRN #10 tab PRN Reason: Nausea Nitrofurantoin Macrocrystals [Macrobid] 100 mg PO Q12 #10 cap Referrals: Jacky Preciado, [employer]-C [Primary Care Provider] -
--- NOTE | 2018-08-14 00:38 | ED.RN ---
2248 was in the process of starting an iv and the pt's mother asked for a glass of water for her.informed her that this nurse was starting the pt's iv.pt's mother asked if she could go get it herself and instructed fine with directions.
[2018-08-14 00:40] LABS: Absolute Lymphocyte Count 3.44 X10^3/ul (0.83-4.51); Absolute Neutrophil Count 8.5 X10^3/uL (2.0-7.7); Basophil# 0.04 X10^3/uL; Basophil% 0.3 % (0-1); Eosinophil# 0.25 X10^3/uL; Eosinophils% 1.9 % (0-5); Hematocrit 40.4 % (37-47); Hemoglobin 13.6 g/dl (12.0-15.0); Lymphocyte # 3.44 X10^3/ul (4.0); Lymphocyte % 25.9 % (19-41); Mean Corp Hgb Conc 33.7 g/gl (32-36); Mean Corpuscular Hgb 27.4 pg (27.0-32.0); Mean Corpuscular Volume 81.5 fL (81-99); Mean Platelet Vol. 9.9 fl (6.2-12.0); Monocyte# 1.04 X10^3/uL; Monocyte% 7.8 % (0-10); Neutrophil # 8.47 X10^3/uL (2.7-7.7); Neutrophil % 63.6 % (47-70); Platelet Count 324 K/mm3 (150-450); RBC Distribution Width CV 14.1 % (11.6-14.6); RBC Distribution Width SD 41.1 fl (35.1-43.9); Red Blood Count 4.96 M/mm3 (4.2-5.4); White Blood Count 13.3 K/mm3 (4.4-11.0)
--- NOTE | 2018-08-14 00:40 | ED.RN ---
2305 was getting ready to help the pt up to go to the bathroom for a urine specimen and the pt's mother was asking for another warm blanket for the pt and her.Advised her when she gets back this nurse will bring in blankets. 230 blankets brought in.pt is very emotional and leaning on her boyfriend and parent for support.
[2018-08-14 00:43] LABS: ALB/GLOB Ratio 1.1 RATIO (0.9-2.4); AST(SGOT) 14 U/L (15-37); Alanine Aminotransfer ALT/SGPT 18 U/L (13-56); Albumin, Serum 4.4 g/dL (3.2-5.0); Alkaline Phosphatase 58 U/L (45-117); Anion Gap 8 (5-15); BUN 15 mg/dL (7-18); BUN/Creat Ratio 20.1 RATIO (10-20); Calcium,Total 9.1 mg/dL (8.5-10.1); Chloride 107 mmol/L (98-107); Creatinine, Serum 0.75 mg/dL (0.55-1.02); EST Glomerular Filtration Rate 101 mL/min (>60); Est Glom Filt Rate - Afr Amer 122 mL/min (>60); Estimated Creatinine Clearance 120.88 ml/min; Globulin 3.9 g/dL (2.2-4.2); Glucose 92 mg/dL (74-106); Lipase 163 U/L (73-393); POSITIVE COUNT NO; POSITIVE DIFFERENTIAL NO; POSITIVE MORPHOLOGY NO; Potassium 3.7 mmol/L (3.5-5.1); Protein, Total 8.3 g/dL (6.4-8.2); Sodium Level 140 mmol/L (136-145)
[2018-08-14 01:29] VITALS: RESP 16
[2018-08-14 03:02] VITALS: BP 117/79; PULSE 84; RESP 16; O2SAT 99
== END 2018-08-14 03:03 | disposition home or self-care (01) ==
PROVIDERS: Emergency Provider Emergency Medicine; Family Provider Nurse Practitioner Family; PCP Nurse Practitioner Family
DX: N39.0 Urinary tract infection, site not specified (principal); R10.13 Epigastric pain; R11.2 Nausea with vomiting, unspecified; R19.7 Diarrhea, unspecified; K21.9 Gastro-esophageal reflux disease without esophagitis; J45.909 Unspecified asthma, uncomplicated; Z72.0 Tobacco use
CPT/HCPCS: 74177; 80053; 81001; 83690; 84703; 85025; 96361; 96374; 96375; 99285; J7030; Q9967; A4216; J2405

== ENCOUNTER 2018-10-19 18:41 | Emergency (ER) | payer MEDICAID, SELFPAY ==
[2018-10-19 18:42] VITALS: BP 142/90; PULSE 93; RESP 18; TEMP 36.8; O2SAT 96; BMI 27.1
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
[2018-10-19] MEDS: diazePAM 5 MG Tablet PO (19:01)
[2018-10-19] MEDS: HYDROcodone Bitartrate/Apap 5/325 Tablet PO (19:01)
--- NOTE | 2018-10-19 19:10 | RAD_ITS ---
STUDY: X-RAY - CERVICAL SPINE REASON FOR EXAM: Female, 23 years old. Pain in left shoulder and neck TECHNIQUE: 3 view(s) of the cervical spine were obtained. COMPARISON: None FINDINGS: Normal anterior atlantoaxial articulation. Normal odontoid process. Decreased cervical lordosis. Normal vertebral bodies and endplates. Normal disc space heights. Normal visualized intervertebral neuroforamina. The soft tissue structures are unremarkable. RAD/Cerv Spine 2 or 3 Views IMPRESSION: Decreased cervical lordosis possibly due to muscle spasm otherwise normal x-ray examination of the visualized cervical spine. Electronically Signed: Lázaro Jeter MD at 19:25 EDT , Service support ,
[2018-10-19] MEDS: Ondansetron ODT 4 MG Tablet 8 MG PO (20:08)
== END 2018-10-19 20:10 | disposition home or self-care (01) ==
LOC: ED 19:05
PROVIDERS: Emergency Provider Emergency Medicine; Family Provider Nurse Practitioner Family; PCP Nurse Practitioner Family
DX: M43.6 Torticollis (principal); F17.200 Nicotine dependence, unspecified, uncomplicated
CPT/HCPCS: 72040; 99283

== ENCOUNTER 2019-04-19 18:51 | Emergency (ER) | payer SELFPAY ==
[2019-04-19 18:52] VITALS: BP 141/85; PULSE 91; RESP 17; TEMP 37.4; O2SAT 99; BMI 27.3
[2019-04-19 21:40] VITALS: BP 136/96; PULSE 82; RESP 16; O2SAT 98
[2019-04-19 22:38] LABS: Absolute Lymphocyte Count 4.38 X10^3/uL (0.83-4.51); Basophil# 0.06 X10^3/uL; Basophil% 0.6 % (0-1); Eosinophil# 0.11 X10^3/uL; Eosinophils% 1.1 % (0-5); Hematocrit 39.1 % (37-47); Hemoglobin 12.7 g/dL (12.0-15.0); Lymphocyte # 4.38 X10^3/ul (4.0); Lymphocyte % 42.2 % (19-41); Mean Corp Hgb Conc 32.5 g/dL (32-36); Mean Corpuscular Hgb 27.3 pg (27.0-32.0); Mean Corpuscular Volume 83.9 fL (81-99); Monocyte% 7.7 % (0-10); NRBC Flagged by Analyzer 0 % (0-5); Neutrophil % 48.1 % (47-70); Platelet Count 310 K/mm3 (150-450); RBC Distribution Width CV 13.6 % (11.6-14.6); RBC Distribution Width SD 41.3 fl (35.1-43.9); Red Blood Count 4.66 M/mm3 (4.2-5.4); White Blood Count 10.4 K/mm3 (4.4-11.0)
[2019-04-19 22:47] LABS: International Normalized Ratio 1.1; Prothrombin Time (Protime)PT. 13.5 SECONDS (11.7-14.9)
[2019-04-19 22:48] LABS: Partial Thromboplast Time 27.4 Seconds (24.1-36.2)
[2019-04-19 22:50] LABS: AST(SGOT) 11 U/L (15-37); Alanine Aminotransfer ALT/SGPT 19 U/L (13-56); Alkaline Phosphatase 52 U/L (45-117); Anion Gap 4 (5-15); BUN 11 mg/dL (7-18); BUN/Creat Ratio 13.7 RATIO (10-20); Calcium,Total 9.2 mg/dL (8.5-10.1); Chloride 111 mmol/L (98-107); EST Glomerular Filtration Rate 92 mL/min (>60); Est Glom Filt Rate - Afr Amer 112 mL/min (>60); Estimated Creatinine Clearance 112.34 ml/min; Glucose 87 mg/dL (74-106); Lipase 136 U/L (73-393); Potassium 3.5 mmol/L (3.5-5.1); Sodium Level 140 mmol/L (136-145)
[2019-04-19 23:08] VITALS: BP 121/86; PULSE 80; RESP 16; O2SAT 98
[2019-04-19 23:08] LABS: Bacteria 0 SEEN /hpf (None Seen); Mucous, Urine 0 SEEN /hpf (<or=2+); Red Blood Cells-Urine 0 SEEN /hpf (0-5)
[2019-04-19 23:17] LABS: Internal QC Validated? YES +Cl - CLEAR BKGD; Pregnancy, Urine Negative Negative
[2019-04-19 23:20] LABS: Color, Urine Yellow (Yellow); Glucose, Dipstick Normal (Normal); Ketone-Dipstick Negative (Negative); Leukocyte Esterase-Dipstick Negative /ul (Negative); Nitrite-Dipstick Negative (Negative); Occult Blood-Urine Negative /ul (Negative); Protein-Dipstick Negative (Negative); Specific Gravity, Urine 1.015 (1.002-1.030); Urine Bilirubin Dipstick Negative (Negative); Urine Clarity Sl. Cloudy (Clear); Urine Urobilinogen Normal (Normal)
[2019-04-19 23:22] LABS: Amorphous Sediment 2+; Squamous Epithelial Cells - UA 5-10 SEEN /hpf (5-10); White Blood Cells 0-5 SEEN /hpf (0-5)
--- NOTE | 2019-04-19 23:33 | ED.VIS.GEN ---
History of Present Illness Chief Complaint: GI Bleed Informant: Patient Onset: Today Narrative: Patient is a 24-year-old female presenting with an episode of bright red blood per rectum. Patient states she was having what felt like a normal bowel movement when she noticed bleeding from her rectum. She states she then felt like she had a lot of pressure and pushed in a large amount of bright red blood came out. She denies any passage of clots. She states the blood was dripping out of her rectum. Patient has never had a history of this before. She denies any recent straining or rectal trauma. Patient notes she does have a history of IBS and endometriosis. She is on Depo-Provera for her endometriosis. Patient has some mild crampy lower abdominal pain. She notes that she also has chronic intermittent nausea and vomiting. She has not vomited today. She states sometimes she does wake up in the middle the night and vomited. She does not have any associated fever or chills. She denies any chest pain, shortness of breath or difficulty breathing. She does not currently have a primary care doctor or GI doctor. She would like referral for these. She denies any personal or family history of any bleeding disorders. Past Medical History - Allergies and Home Meds Allergies/Adverse Reactions: Allergies benzonatate [From Tessalon Perles] Allergy (Verified 04/19/19 18:52) Shortness of breath, Face numb ketorolac [From Toradol] Allergy (Verified 04/19/19 18:52) Other tramadol Allergy (Verified 04/19/19 18:52) Other metoclopramide [From Reglan] Adverse Reaction (Verified 04/19/19 18:52) Other prochlorperazine [From Compazine] Adverse Reaction (Verified 04/19/19 18:52) Itching promethazine [From Phenergan] Adverse Reaction (Verified 04/19/19 18:52) Other Primary Care Physician: Jacky Preciado NP-C [Primary Care Provider] - Past Medical History: - - IBS, endometriosis Surgical History: noncontributory, - - Exploratory laparoscopy for endometriosis Smoking Status: Former smoker - Family History Maternal Family History: Reports: - - Having similar symptoms of generalized weakness and cough. Review of Systems General: Denies: Chills, Fever, Sweats Eyes: Denies: Visual changes - bilaterally, Diplopia ENT: Denies: Rhinorrhea, Sore throat Cardiovascular: Denies: Chest pain, Palpitations Respiratory: Denies: Dyspnea, Cough, Dyspnea on exertion Gastrointestinal: Reports: Abdominal pain, Hematochezia. Denies: Nausea, Vomiting, Diarrhea, Constipation, Melena Genitourinary: Denies: Dysuria, Hematuria, Frequency Musculoskeletal: Denies: Back pain, Extremity Pain Skin: Denies: Rash, Wounds Neurological: Denies: Headache, Weakness, Numbness Physical Exam Vital Signs/Narrative: Vital Signs Pulse Resp BP Pulse Ox 04/19/19 23:08 80 16 121/86 H 98 04/19/19 21:40 82 16 136/96 H 98 Inital Vital Signs reviewed: Yes General: Well nourished, Well developed, No Acute Distress Head: Normocephalic, Atraumatic Eyes: Perrl, EOMI ENT: Moist mucous membranes, No rhinorrhea Neck: Supple, Nontender Cardiovascular: Regular rate, Regular rhythm, No murmurs Respiratory: No distress, CTA bilaterally, Chest nontender Abdomen: Soft, Nontender, Nondistended, Normal bowel sounds. Negative for: Guarding, Rebound tenderness Rectal: Guaiac positive, Nontender, - - No gross blood or stool on digital rectal exam Back: Nontender, Normal Inspection. Negative for: CVA tenderness Extremities: Nontender, No edema Skin: Normal color, No rash. Negative for: Pallor Neurological: Alert, Oriented x3, Cranial nerves II-XII grossly intact, Normal Strength, Normal Sensation Psychological: Normal affect, Normal Mood Diagnostic/Tx/Re-eval Laboratory Data 04/19/19 04/19/19 04/19/19 22:15 22:15 22:15 WBC 10.4 RBC 4.66 Hgb 12.7 Hct 39.1 MCV 83.9 MCH 27.3 MCHC 32.5 RDW Std Deviation 41.3 RDW Coeff of Elizabeth 13.6 Plt Count 310 MPV 10.0 Immature Gran % (Auto) 0.300 Neut % (Auto) 48.1 Lymph % (Auto) 42.2 H [place] % (Auto) 7.7 Eos % (Auto) 1.1 Baso % (Auto) 0.6 Absolute Neuts (auto) 5.0 Absolute Lymphs (auto) 4.38 Nucleated RBC % 0 PT 13.5 INR 1.1 APTT 27.4 Sodium 140 Potassium 3.5 Chloride 111 H Carbon Dioxide 25.0 Anion Gap 4 L BUN 11 Creatinine 0.80 Estim Creat Clear Calc 112.34 Est GFR (MDRD) Af Amer 112 Est GFR (MDRD) Non-Af 92 BUN/Creatinine Ratio 13.7 Glucose 87 Calcium 9.2 Total Bilirubin 0.20 AST 11 L ALT 19 Alkaline Phosphatase 52 Total Protein 8.0 Albumin 4.0 Globulin 4.0 Albumin/Globulin Ratio 1.0 Lipase 136 Urine Color Urine Clarity Urine pH Ur Specific [place] Urine Protein Urine Glucose (UA) Urine Ketones Urine Occult Blood Urine Nitrite Urine Bilirubin Urine Urobilinogen Ur Leukocyte Esterase Urine RBC Urine WBC Ur Squamous Epith Cells Amorphous Sediment Urine Bacteria Urine Mucus Urine Test 04/19/19 04/19/19 23:00 23:00 WBC RBC Hgb Hct MCV MCH MCHC RDW Std Deviation RDW Coeff of Elizabeth Plt Count MPV Immature Gran % (Auto) Neut % (Auto) Lymph % (Auto) [place] % (Auto) Eos % (Auto) Baso % (Auto) Absolute Neuts (auto) Absolute Lymphs (auto) Nucleated RBC % PT INR APTT Sodium Potassium Chloride Carbon Dioxide Anion Gap BUN Creatinine Estim Creat Clear Calc Est GFR (MDRD) Af Amer Est GFR (MDRD) Non-Af BUN/Creatinine Ratio Glucose Calcium Total Bilirubin AST ALT Alkaline Phosphatase Total Protein Albumin Globulin Albumin/Globulin Ratio Lipase Urine Color Yellow Urine Clarity Sl. Cloudy Urine pH 8.0 Ur Specific [place] 1.015 Urine Protein Negative Urine Glucose (UA) Normal Urine Ketones Negative Urine Occult Blood Negative Urine Nitrite Negative Urine Bilirubin Negative Urine Urobilinogen Normal Ur Leukocyte Esterase Negative Urine RBC 0 SEEN Urine WBC 0-5 SEEN Ur Squamous Epith Cells 5-10 SEEN Amorphous Sediment 2+ Urine Bacteria 0 SEEN Urine Mucus 0 SEEN Urine Test Negative - Medical Decision Making Patient is evaluated for one episode of painless rectal bleeding. On rectal exam she does not have any hemorrhoids, fissures or obvious signs of bleeding. She does not have any bleeding while she is in the emergency room. Patient does test guaiac positive for blood in her rectum. Urinalysis is normal. Abdomen is soft and nontender. Patient does report these intermittent episodes of vomiting. She denies any blood in these. Her lab work is otherwise unremarkable. As her abdomen is soft and nontender I do not think emergent imaging is indicated. I believe that she is stable for outpatient follow-up. She is hemodynamically stable. She will be given a new PCP to follow-up with as she is requesting one. She is counseled that she does need outpatient follow-up for further evaluation of her GI complaints. She is counseled on signs symptoms require return the emergency room. She verbalizes agreement understand this plan. She discharged home in stable condition. ED Disposition - Plan for ED Patient: Disposition: Home or Assisted Living Diagnosis: Bright red blood per rectum Instructions: RECTAL BLEED, Stable Referrals: Jacky Preciado, ZAYRA-C [Primary Care Provider] - Sravanthi Moralez DO [NON-STAFF] - Additional Instructions: The exact cause of your symptoms is not clear today. I do think you are stable to go home and follow-up with your primary care doctor. I did refer you to Dr. moralez to call if you would like to establish with a new primary care doctor. If you have worsening bleeding, lightheadedness or severe abdominal pain please return to the emergency room for reevaluation.
[2019-04-19 23:49] VITALS: BP 121/86; PULSE 80; RESP 18; TEMP 36.6
== END 2019-04-19 23:55 | disposition home or self-care (01) ==
PROVIDERS: Emergency Provider Emergency Medicine; Family Provider Nurse Practitioner Family; PCP Nurse Practitioner Family
DX: K62.5 Hemorrhage of anus and rectum (principal); K58.9 Irritable bowel syndrome, unspecified; N80.9 Endometriosis, unspecified; Z87.891 Personal history of nicotine dependence
CPT/HCPCS: 80053; 81001; 81025; 82274; 83690; 85025; 85610; 85730; 99283; A4216

== ENCOUNTER 2019-10-06 21:39 | Emergency (ER) | payer SELFPAY ==
[2019-10-06 21:40] VITALS: BP 147/105; PULSE 88; RESP 22; TEMP 36.3; O2SAT 96; BMI 27.0
--- NOTE | 2019-10-06 22:07 | ED.VIS.GEN ---
History of Present Illness Chief Complaint: Abd Pain Informant: Patient Onset: Today Current Severity: Moderate Maximum Severity: Severe Narrative: She presents with severe lower abdominal pain. She is a history of endometriosis. She had previously been on the Depo shot. She did not get her shot in April when it was due. She stopped taking the shots because they were making her nauseated. Patient states that she has had some abdominal pain with her period for the past 5 months. Today her period started earlier than expected and had significant abdominal pain. Her last visit Tylenol was 3 hours ago. She also reports having diarrhea and nausea secondary to pain. 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 - Past Medical History (1) Chronic stable Asthma Status: Chronic (2) Endometriosis Status: Chronic Past Medical History - Allergies and Home Meds Allergies/Adverse Reactions: Allergies benzonatate [From Tessalon Perles] Allergy (Verified 10/06/19 22:04) Shortness of breath, Face numb ketorolac [From Toradol] Allergy (Verified 10/06/19 22:04) Other tramadol Allergy (Verified 10/06/19 22:04) Other metoclopramide [From Reglan] Adverse Reaction (Verified 10/06/19 22:04) Other prochlorperazine [From Compazine] Adverse Reaction (Verified 10/06/19 22:04) Itching promethazine [From Phenergan] Adverse Reaction (Verified 10/06/19 22:04) Other Primary Care Physician: Jacky Preciado NP-C [Primary Care Provider] - Prior records reviewed: Yes Surgical History: noncontributory, - - Exploratory laparoscopy for endometriosis Smoking Status: Never smoker - Family History Maternal Family History: Reports: - - Having similar symptoms of generalized weakness and cough. Review of Systems General: Denies: Chills, Fever Eyes: Denies: Visual changes - bilaterally ENT: Denies: Bilateral ear pain Cardiovascular: Denies: Chest pain Respiratory: Denies: Dyspnea, Cough Gastrointestinal: Reports: Abdominal pain, Nausea, Diarrhea. Denies: Vomiting Genitourinary: Denies: Dysuria Musculoskeletal: Denies: Swelling, Extremity Pain Skin: Denies: Rash Neurological: Denies: Headache Hematologic: Denies: Easy bruising, Easy bleeding Allergy: Denies: Uticaria Physical Exam Vital Signs/Narrative: Vital Signs Temp Pulse Resp BP Pulse Ox 10/06/19 21:40 97.4 F L 88 22 H 147/105 H 96 Inital Vital Signs reviewed: Yes General: Well nourished, Well developed Head: Normocephalic ENT: Moist mucous membranes Neck: Supple Cardiovascular: Regular rate, Regular rhythm Respiratory: No distress, CTA bilaterally Abdomen: Soft, Tender - Moderate diffuse tenderness palpation.. Negative for: Guarding, Rebound tenderness Skin: Normal color Neurological: Alert, Oriented x3 Psychological: Tearful Diagnostic/Tx/Re-eval Laboratory Results 10/06/19 10/06/19 10/06/19 22:05 22:05 22:05 WBC 9.3 RBC 4.28 Hgb 12.4 Hct 37.9 MCV 88.6 MCH 29.0 MCHC 32.7 RDW Std Deviation 43.5 RDW Coeff of Elizabeth 13.5 Plt Count 300 MPV 10.0 Immature Gran % (Auto) 0.100 Neut % (Auto) 45.7 L Lymph % (Auto) 42.7 H [place] % (Auto) 9.2 Eos % (Auto) 1.8 Baso % (Auto) 0.5 Absolute Neuts (auto) 4.3 Absolute Lymphs (auto) 3.99 Nucleated RBC % 0 Sodium 141 Potassium 3.8 Chloride 110 H Carbon Dioxide 27.0 Anion Gap 4 L BUN 11 Creatinine 0.66 Estim Creat Clear Calc 136.18 Est GFR (MDRD) Af Amer 140 Est GFR (MDRD) Non-Af 115 BUN/Creatinine Ratio 16.7 Glucose 91 Calcium 8.9 Total Bilirubin 0.20 Direct Bilirubin 0.09 AST 10 L ALT 16 Alkaline Phosphatase 51 Total Protein 7.4 Albumin 3.8 Globulin 3.6 Lipase 106 Serum , Qual NEGATIVE Urine Color Urine Clarity Urine pH Ur Specific [place] Urine Protein Urine Glucose (UA) Urine Ketones Urine Occult Blood Urine Nitrite Urine Bilirubin Urine Urobilinogen Ur Leukocyte Esterase Urine RBC Urine WBC Ur Squamous Epith Cells Urine Bacteria Urine Mucus 10/06/19 22:20 WBC RBC Hgb Hct MCV MCH MCHC RDW Std Deviation RDW Coeff of Elizabeth Plt Count MPV Immature Gran % (Auto) Neut % (Auto) Lymph % (Auto) [place] % (Auto) Eos % (Auto) Baso % (Auto) Absolute Neuts (auto) Absolute Lymphs (auto) Nucleated RBC % Sodium Potassium Chloride Carbon Dioxide Anion Gap BUN Creatinine Estim Creat Clear Calc Est GFR (MDRD) Af Amer Est GFR (MDRD) Non-Af BUN/Creatinine Ratio Glucose Calcium Total Bilirubin Direct Bilirubin AST ALT Alkaline Phosphatase Total Protein Albumin Globulin Lipase Serum , Qual Urine Color Yellow Urine Clarity Clear Urine pH 6.5 Ur Specific [place] 1.015 Urine Protein Negative Urine Glucose (UA) Normal Urine Ketones Negative Urine Occult Blood 250 H Urine Nitrite Negative Urine Bilirubin Negative Urine Urobilinogen Normal Ur Leukocyte Esterase Negative Urine RBC 0-5 SEEN Urine WBC 0-5 SEEN Ur Squamous Epith Cells 0-5 SEEN Urine Bacteria 0 SEEN Urine Mucus 0 SEEN - Medical Decision Making Patient was given morphine and Zofran along with p.o. ibuprofen and Pepcid. Repeat evaluation she is resting much more comfortably. She will be referred to Dr. 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 Prescription for Ashley will be sent to the pharmacy for her to corn picker in the morning. I did do an oars report and she has had no narcotics in the past year. ED Disposition - Plan for ED Patient: Disposition: Home or Assisted Living Diagnosis: Abdominal pain Instructions: ED Abdominal Pain Unkn Cause Fem Prescriptions: Hydrocodone Bitart/Apap 5-325 [Ashley 5MG-325MG] 1 tablet PO Q6H PRN PRN 3 Days #10 tablet PRN Reason: Pain Transmission Status: Received by [id number] [place] [address] Referrals: Rosaline Adams DO [STAFF PHYSICIAN] - As soon as possible
[2019-10-06] MEDS: Morphine 4 MG/ML Syringe IV (22:12)
[2019-10-06] MEDS: Ondansetron 4 MG/2 ML Vial IV (22:12)
[2019-10-06] MEDS: Ibuprofen 600 MG Tablet PO (22:12)
[2019-10-06] MEDS: Famotidine 20 MG Tablet 40 MG PO (22:12)
[2019-10-06] MEDS: 0.9% Normal Saline 1,000 ML 150 ML IV (22:14)
[2019-10-06 22:21] LABS: Bacteria 0 SEEN /hpf (None Seen); Mucous, Urine 0 SEEN /hpf (<or=2+)
[2019-10-06 22:24] LABS: Color, Urine Yellow (Yellow); Glucose, Dipstick Normal (Normal); Ketone-Dipstick Negative (Negative); Leukocyte Esterase-Dipstick Negative /ul (Negative); Nitrite-Dipstick Negative (Negative); Occult Blood-Urine 250 /ul (Negative); Protein-Dipstick Negative (Negative); Specific Gravity, Urine 1.015 (1.002-1.030); Urine Bilirubin Dipstick Negative (Negative); Urine Clarity Clear (Clear); Urine Urobilinogen Normal (Normal); Urine pH 6.5 (5.0 - 8.0)
[2019-10-06 22:31] LABS: Red Blood Cells-Urine 0-5 SEEN /hpf (0-5); Squamous Epithelial Cells - UA 0-5 SEEN /hpf (5-10); White Blood Cells 0-5 SEEN /hpf (0-5)
[2019-10-06 22:37] LABS: AST(SGOT) 10 U/L (15-37); Alanine Aminotransfer ALT/SGPT 16 U/L (13-56); Albumin, Serum 3.8 g/dL (3.2-5.0); Alkaline Phosphatase 51 U/L (45-117); Anion Gap 4 (5-15); BUN 11 mg/dL (7-18); BUN/Creat Ratio 16.7 RATIO (10-20); Bilirubin, Direct 0.09 mg/dL (0.00-0.30); Calcium,Total 8.9 mg/dL (8.5-10.1); Chloride 110 mmol/L (98-107); Creatinine, Serum 0.66 mg/dL (0.55-1.02); EST Glomerular Filtration Rate 115 mL/min (>60); Est Glom Filt Rate - Afr Amer 140 mL/min (>60); Estimated Creatinine Clearance 136.18 ml/min; Globulin 3.6 g/dL (2.2-4.2); Glucose 91 mg/dL (74-106); Lipase 106 U/L (73-393); Potassium 3.8 mmol/L (3.5-5.1); Protein, Total 7.4 g/dL (6.4-8.2); Sodium Level 141 mmol/L (136-145)
[2019-10-06 22:38] LABS: Internal QC Validated? YES +Cl - CLEAR BKGD; Pregnancy, Serum, hCG Quali. NEGATIVE Negative
[2019-10-06 23:04] LABS: Absolute Lymphocyte Count 3.99 X10^3/uL (0.83-4.51); Absolute Neutrophil Count 4.3 X10^3/uL (2.0-7.7); Basophil# 0.05 X10^3/uL; Basophil% 0.5 % (0-1); Eosinophil# 0.17 X10^3/uL; Eosinophils% 1.8 % (0-5); Hematocrit 37.9 % (37-47); Hemoglobin 12.4 g/dL (12.0-15.0); Lymphocyte # 3.99 X10^3/ul (4.0); Lymphocyte % 42.7 % (19-41); Mean Corp Hgb Conc 32.7 g/dL (32-36); Mean Corpuscular Volume 88.6 fL (81-99); Monocyte# 0.86 X10^3/uL; Monocyte% 9.2 % (0-10); NRBC Flagged by Analyzer 0 % (0-5); Neutrophil # 4.26 X10^3/uL (2.7-7.7); Neutrophil % 45.7 % (47-70); Platelet Count 300 K/mm3 (150-450); RBC Distribution Width CV 13.5 % (11.6-14.6); RBC Distribution Width SD 43.5 fl (35.1-43.9); Red Blood Count 4.28 M/mm3 (4.2-5.4); White Blood Count 9.3 K/mm3 (4.4-11.0)
[2019-10-06 23:27] VITALS: BP 128/80; PULSE 73; RESP 16; O2SAT 98
== END 2019-10-06 23:29 | disposition home or self-care (01) ==
PROVIDERS: Emergency Provider Emergency Medicine; PCP Nurse Practitioner Family
DX: R10.30 Lower abdominal pain, unspecified (principal)
CPT/HCPCS: 80048; 80076; 81001; 83690; 84703; 85025; 96361; 96374; 96375; 99284; J7030; A4216; J2405

== ENCOUNTER 2020-02-20 09:54 | Emergency (ER) | payer MEDICAID, SELFPAY ==
[2020-02-20 09:54] VITALS: BP 140/84; PULSE 90; RESP 24; TEMP 36.8; O2SAT 100; BMI 26.6
--- NOTE | 2020-02-20 10:14 | CT_ITS ---
STUDY: CT ABDOMEN AND PELVIS WITH CONTRAST REASON FOR EXAM: Female, 25 years old. SUDDEN ONSET SEVERE RIGHT SIDE ABD PAIN, N/V/D -- HX-IBS, ENDOMETRIOSIS RADIATION DOSAGE (If Supplied By Facility): CTDIvol = ( 13.23 ) mGy, DLP = ( 893.01 ) mGycm TECHNIQUE: Transaxial images were obtained from the dome of the diaphragm to the symphysis pubis without oral contrast. IV 100mL Isovue-370 was administered. Sagittal and coronal images were reconstructed. Individualized dose optimization techniques were used for this CT. COMPARISON: 08/14/[address] abdomen and pelvis FINDINGS: The visualized lung bases are unremarkable. The visualized portions of the heart are within normal limits. Normal liver. There does appear mild focal fatty infiltration of the falciform ligament. In association with the fundus of the gallbladder there is a thickening. This can be seen in retrospect. Perhaps it represents contracted phrygian cap. Cannot exclude endometrial implant. It does appear chronic and I do not suspect that this represents an acute change. No free fluid or hemorrhage seen in the subjacent soft tissues. There is no intrahepatic biliary ductal dilatation. Normal spleen. Normal pancreas. Normal bilateral adrenal glands. Normal right kidney. Normal left kidney. Normal visualized stomach. Normal small intestine. The ascending colon is contracted. It appears that there is subtle wall thickening and subjacent fatty stranding. This may relate to a mild colitis, for instance refer to image #69 series 2. The colon otherwise has an unremarkable appearance. There is non-visualization of the appendix. Normal abdominal aorta. Normal inferior vena cava. Normal retroperitoneum. Normal urinary bladder. The uterus and adnexa have an unremarkable appearance. There is a small amount of nonspecific free fluid in the cul-de-sac. This is of low density and considered within normal limits for a patient of reproductive age. Normal abdominal wall. Normal osseous structures. CT/Abdomen/Pelvis W IV Cont ONLY IMPRESSION: * The ascending colon is contracted. It appears that there is subtle wall thickening and subjacent fatty stranding. This may relate to a mild colitis * Altered appearance of the fundus of the gallbladder which perhaps represents a contracted phrygian cap but an endometrial implant could also have a similar appearance. There is no free fluid seen subjacent. Ultrasound may be helpful in further evaluation, if clinically indicated, with attention to this area. Electronically Signed: Deepa Bojorquez MD at 11:37 EST , Service support ,
--- NOTE | 2020-02-20 10:15 | ED.DCSUM_ITS ---
History of Present Illness Chief Complaint: Abd Pain Informant: Patient - Abdominal Pain/Flank Pain Onset: Today Context: Sudden Onset - just after having BM Timing: Continuous Quality: Aching Location: RLQ - no radiation Current Severity: Severe Maximum Severity: Severe Worsened by: Movement Relieved by: Nothing - Nausea/Vomiting/Emesis GI Symptom: Nausea, Vomiting Onset: Today - Diarrhea/Melena/Hematochezia GI Symptom: Diarrhea - this AM. Negative for: Melena, Hematochezia Stool Quality: Loose Severity: Mild Associated Symptoms: Negative for: Dysuria, Frequency, Hematuria, Urgency LMP: 1 month Narrative: 25-year-old female with a history of endometriosis states that she has never had pain this severe, but it is not in the same basic area, right pelvis. No known history of ovarian cysts or other problems like this. She states she was sup posed to start her cycle today and thinks that she started bleeding a little today. She was feeling fine prior to this with no recent illnesses. She states that she frequently goes back and forth between constipation and diarrhea with regards to her IBS, and the mild diarrhea she had this morning is not unusual for her. - Past Medical History (1) Chronic stable Asthma Status: Chronic (2) Endometriosis Status: Chronic (3) IBS (irritable bowel syndrome) Status: Chronic Past Medical History - Allergies and Home Meds Allergies/Adverse Reactions: Allergies benzonatate [From Tessalon Perles] Allergy (Verified 02/20/20 09:57) Shortness of breath, Face numb ketorolac [From Toradol] Allergy (Verified 02/20/20 09:57) Other tramadol Allergy (Verified 02/20/20 09:57) Other metoclopramide [From Reglan] Adverse Reaction (Verified 02/20/20 09:57) Other prochlorperazine [From Compazine] Adverse Reaction (Verified 02/20/20 09:57) Itching promethazine [From Phenergan] Adverse Reaction (Verified 02/20/20 09:57) Other Primary Care Physician: Jacky Preciado SPORTS COORDINATOR, SPORTS COORDINATOR-C [Primary Care Provider] - Surgical History: - - Exploratory laparoscopy for endometriosis Smoking Status: Never smoker - Family History Maternal Family History: Reports: - - Having similar symptoms of generalized weakness and cough. Review of Systems General: Denies: Chills, Fever, Sweats Eyes: Denies: Visual changes - bilaterally, Diplopia ENT: Denies: Bilateral ear pain, Rhinorrhea, Sore throat Cardiovascular: Denies: Chest pain, Palpitations Respiratory: Denies: Dyspnea, Cough, Dyspnea on exertion Gastrointestinal: Reports: Abdominal pain, Nausea, Vomiting, Diarrhea. Denies: Melena, Hematochezia Genitourinary: Denies: Dysuria, Hematuria, Frequency Musculoskeletal: Denies: Myalgias, Back pain, Swelling, Extremity Pain Skin: Denies: Rash, Wounds Neurological: Denies: Headache, Weakness, Numbness Physical Exam Vital Signs/Narrative: Vital Signs Temp Pulse Resp BP Pulse Ox 02/20/20 09:54 98.2 F 90 24 H 140/84 H 100 Inital Vital Signs reviewed: Yes General: Well nourished, Well developed, Acute Distress - Painful. Tearful. No respiratory distress. Head: Normocephalic, Atraumatic Eyes: Perrl, EOMI ENT: Moist mucous membranes, No rhinorrhea Neck: Supple, Nontender Cardiovascular: Regular rate, Regular rhythm, No murmurs Respiratory: No distress, CTA bilaterally, Chest nontender Abdomen: Soft, Nondistended, Normal bowel sounds, Tender - Distal right lower quadrant and suprapubic, nontender at McBurney's point. No other areas of tenderness.. Negative for: Guarding, Rebound tenderness Back: Nontender, Normal Inspection. Negative for: CVA tenderness Extremities: Nontender, No edema. Negative for: Calf Tenderness Skin: Normal color, No rash, No Trauma Neurological: Alert, Oriented x3, Cranial nerves II-XII grossly intact, Normal Strength, Normal Sensation Psychological: Tearful Diagnostic/Tx/Re-eval Impressions Abdomen/Pelvis CT 02/20/20 10:14 IMPRESSION: * The ascending colon is contracted. It appears that there is subtle wall thickening and subjacent fatty stranding. This may relate to a mild colitis * Altered appearance of the fundus of the gallbladder which perhaps represents a contracted phrygian cap but an endometrial implant could also have a similar appearance. There is no free fluid seen subjacent. Ultrasound may be helpful in further evaluation, if clinically indicated, with attention to this area. Electronically Signed: Deepa Bojorquez MD at 11:37 EST , Service support , 02/20/20 10:14 Abdomen/Pelvis W IV Cont ONLY [CT] Stat Laboratory Results 02/20/20 02/20/20 02/20/20 10:10 10:10 10:10 WBC 7.3 RBC 4.52 Hgb 13.3 Hct 39.7 MCV 87.8 MCH 29.4 MCHC 33.5 RDW Std Deviation 42.5 RDW Coeff of Elizabeth 13.2 Plt Count 312 MPV 9.5 Immature Gran % (Auto) 0.100 Neut % (Auto) 52.0 Lymph % (Auto) 34.8 [place] % (Auto) 10.1 H Eos % (Auto) 2.5 Baso % (Auto) 0.5 Absolute Neuts (auto) 3.8 Absolute Lymphs (auto) 2.55 Nucleated RBC % 0 Sodium 141 Potassium 4.0 Chloride 110 H Carbon Dioxide 25.0 Anion Gap 6 BUN 11 Creatinine 0.73 Estim Creat Clear Calc 122.05 Est GFR (MDRD) Af Amer 124 Est GFR (MDRD) Non-Af 103 BUN/Creatinine Ratio 15.1 Glucose 92 Calcium 8.7 Serum , Qual NEGATIVE Urine Color Urine Clarity Urine pH Ur Specific [place] Urine Protein Urine Glucose (UA) Urine Ketones Urine Occult Blood Urine Nitrite Urine Bilirubin Urine Urobilinogen Ur Leukocyte Esterase Urine RBC Urine WBC Ur Squamous Epith Cells Urine Bacteria Urine Mucus 02/20/20 11:15 WBC RBC Hgb Hct MCV MCH MCHC RDW Std Deviation RDW Coeff of [place] Plt Count MPV Immature Gran % (Auto) Neut % (Auto) Lymph % (Auto) [place] % (Auto) Eos % (Auto) Baso % (Auto) Absolute Neuts (auto) Absolute Lymphs (auto) Nucleated RBC % Sodium Potassium Chloride Carbon Dioxide Anion Gap BUN Creatinine Estim Creat Clear Calc Est GFR (MDRD) Af Amer Est GFR (MDRD) Non-Af BUN/Creatinine Ratio Glucose Calcium Serum , Qual Urine Color Yellow Urine Clarity Sl. Cloudy Urine pH 5.0 Ur Specific [place] 1.015 Urine Protein Negative Urine Glucose (UA) Normal Urine Ketones Negative Urine Occult Blood 150 H Urine Nitrite Negative Urine Bilirubin Negative Urine Urobilinogen Normal Ur Leukocyte Esterase Negative Urine RBC 0-5 SEEN Urine WBC 0 SEEN Ur Squamous Epith Cells 0 SEEN Urine Bacteria 0 SEEN Urine Mucus 0 SEEN - Medical Decision Making Patient was treated with morphine in addition to Zofran and IV fluids. She feels much better on reevaluation, pain is still there but she is less tender and painful and able to carry on a conversation normally. CT findings were discussed with her. Differential here includes endometriosis related pain, which I am suspicious this is due to her starting her cycle today, in addition to a ruptured ovarian cyst, less likely torsion given the location of the pain which is all the way to her right mid abdomen, and given the lesion seen at the gallbladder fundus which may be implantation of endometrial tissue, this correlates. Asking for something for pain for at home, I will give her a short course of [place] and advised she follow-up, we discussed reasons to return she is comfortable with that plan. ED Disposition - Plan for ED Patient: Disposition: Home or Assisted Living Diagnosis: Endometriosis, RLQ abdominal pain Instructions: ED Endometriosis Prescriptions: Hydrocodone Bitart/Apap 5-325 [[place] 5MG-325MG] 1 tab PO Q4H PRN PRN 2 Days #10 tab PRN Reason: Pain Prescription Printed Referrals: Jacky Preciado SPORTS COORDINATOR, SPORTS COORDINATOR-C [Primary Care Provider] - 3-5 Days if not improving (and/or your ADDICTION THERAPIST) Additional Instructions: Return to the ER for recurrent severe pain
[2020-02-20 10:17] VITALS: BP 140/84; PULSE 90; RESP 24; TEMP 36.8; O2SAT 100
[2020-02-20] MEDS: Morphine 4 MG/ML Syringe IV (10:22)
[2020-02-20] MEDS: Ondansetron 4 MG/2 ML Vial IV (10:22)
[2020-02-20] MEDS: 0.9% Normal Saline 1,000 ML 1000 ML IV (10:22)
[2020-02-20 10:23] LABS: Absolute Lymphocyte Count 2.55 X10^3/uL (0.83-4.51); Absolute Neutrophil Count 3.8 X10^3/uL (2.0-7.7); Basophil# 0.04 X10^3/uL; Basophil% 0.5 % (0-1); Eosinophil# 0.18 X10^3/uL; Eosinophils% 2.5 % (0-5); Hematocrit 39.7 % (37-47); Hemoglobin 13.3 g/dL (12.0-15.0); Lymphocyte # 2.55 X10^3/ul (4.0); Lymphocyte % 34.8 % (19-41); Mean Corp Hgb Conc 33.5 g/dL (32-36); Mean Corpuscular Hgb 29.4 pg (27.0-32.0); Mean Corpuscular Volume 87.8 fL (81-99); Mean Platelet Vol. 9.5 fl (6.2-12.0); Monocyte# 0.74 X10^3/uL; Monocyte% 10.1 % (0-10); NRBC Flagged by Analyzer 0 % (0-5); Neutrophil # 3.81 X10^3/uL (2.7-7.7); Platelet Count 312 K/mm3 (150-450); RBC Distribution Width CV 13.2 % (11.6-14.6); RBC Distribution Width SD 42.5 fl (35.1-43.9); Red Blood Count 4.52 M/mm3 (4.2-5.4); White Blood Count 7.3 K/mm3 (4.4-11.0)
[2020-02-20 10:30] LABS: Anion Gap 6 (5-15); BUN 11 mg/dL (7-18); BUN/Creat Ratio 15.1 RATIO (10-20); Calcium,Total 8.7 mg/dL (8.5-10.1); Chloride 110 mmol/L (98-107); Creatinine, Serum 0.73 mg/dL (0.55-1.02); EST Glomerular Filtration Rate 103 mL/min (>60); Est Glom Filt Rate - Afr Amer 124 mL/min (>60); Estimated Creatinine Clearance 122.05 ml/min; Glucose 92 mg/dL (74-106); Sodium Level 141 mmol/L (136-145)
[2020-02-20 10:46] LABS: Internal QC Validated? YES +Cl - CLEAR BKGD; Pregnancy, Serum, hCG Quali. NEGATIVE Negative
[2020-02-20 11:24] LABS: Bacteria 0 SEEN /hpf (None Seen); Mucous, Urine 0 SEEN /hpf (<or=2+); Squamous Epithelial Cells - UA 0 SEEN /hpf (5-10); White Blood Cells 0 SEEN /hpf (0-5)
[2020-02-20 11:25] VITALS: BP 123/92; PULSE 69; RESP 15
[2020-02-20 11:27] LABS: Color, Urine Yellow (Yellow); Glucose, Dipstick Normal (Normal); Ketone-Dipstick Negative (Negative); Leukocyte Esterase-Dipstick Negative /ul (Negative); Nitrite-Dipstick Negative (Negative); Occult Blood-Urine 150 /ul (Negative); Protein-Dipstick Negative (Negative); Specific Gravity, Urine 1.015 (1.002-1.030); Urine Bilirubin Dipstick Negative (Negative); Urine Clarity Sl. Cloudy (Clear); Urine Urobilinogen Normal (Normal)
[2020-02-20 12:09] LABS: Red Blood Cells-Urine 0-5 SEEN /hpf (0-5)
[2020-02-20 12:51] VITALS: BP 122/67; PULSE 52; RESP 16; O2SAT 98
== END 2020-02-20 12:51 | disposition home or self-care (01) ==
PROVIDERS: Emergency Provider Emergency Medicine; PCP Nurse Practitioner Family
DX: N80.9 Endometriosis, unspecified (principal); R10.31 Right lower quadrant pain
CPT/HCPCS: 74177; 80048; 81001; 84703; 85025; 96374; 96375; 99283; J7030; Q9967; A4216; J2405

== ENCOUNTER 2020-04-30 17:23 | Emergency (ER) | payer MEDICAID, SELFPAY ==
[2020-04-30 17:24] VITALS: BP 118/82; PULSE 101; RESP 16; TEMP 36.7; O2SAT 99; BMI 27.0
--- NOTE | 2020-04-30 18:06 | US_ITS ---
STUDY: FIRST TRIMESTER OBSTETRICAL ULTRASOUND REASON FOR EXAM: Female, 25 years old BLEEDING STARTED AM WAS LIGHT THEN HEAVIER LMP: 03/19/2020 TECHNIQUE: Transvaginal TECHNICAL QUALITY: Adequate. PRIOR ULTRASOUND: None. FINDINGS: There is visualization of a single gestational sac in a normal intrauterine position. The mean sac diameter (MSD) measures 0.69 cm, indicating an estimated gestational age (EGA) of 5 weeks, 2 days. The gestational sac shape is within normal limits. There is a visualized yolk sac. The yolk sac measures 5 mm. The placenta is non-visualized. There is visualization of a live embryo. The crown-rump length (CRL) measures 0.31 cm, indicating an estimated gestational age (EGA) of 6 weeks, 1 days. There is demonstrated cardiac activity with a heart rate of 112 bpm. The estimated gestation age (EGA) by LMP is 6 weeks, 0 days. The estimated date of delivery (LAURA) by LMP is 12/24/2020. The estimated gestation age (EGA) by US is 5 weeks, 5 days. The estimated date of delivery (LAURA) by US is ultrasound 12/24/2020. The uterus measures 7.8 x 5.3 x 4.4. There is no demonstrated uterine fibroid. The cervix is closed. The right ovary measures 2.2 x 1.8 x 1.4 cm. There is no right ovarian cyst. There is no visualized right adnexal mass or complex lesion. The left ovary measures 2.2 x 1.4 x 1.1 cm. There is no left ovarian cyst. There is no visualized left adnexal mass or complex lesion. There is minimal fluid in the cul de sac. US/Transvaginal w/Preg US IMPRESSION: Live intrauterine with estimated gestational age by ultrasound of 5 weeks and 5 days with estimated date of confinement of 12/26/2020. Electronically Signed: Aaron Thompson DO at 21:09 EST , Service support ,
[2020-04-30 18:13] LABS: Absolute Lymphocyte Count 2.61 X10^3/uL (0.83-4.51); Absolute Neutrophil Count 5.7 X10^3/uL (2.0-7.7); Basophil# 0.03 X10^3/uL; Basophil% 0.3 % (0-1); Eosinophil# 0.08 X10^3/uL; Eosinophils% 0.9 % (0-5); Hematocrit 39.1 % (37-47); Lymphocyte # 2.61 X10^3/ul (4.0); Lymphocyte % 28.6 % (19-41); Mean Corp Hgb Conc 33.2 g/dL (32-36); Mean Corpuscular Hgb 29.3 pg (27.0-32.0); Mean Corpuscular Volume 88.1 fL (81-99); Mean Platelet Vol. 9.5 fl (6.2-12.0); Monocyte# 0.74 X10^3/uL; Monocyte% 8.1 % (0-10); NRBC Flagged by Analyzer 0 % (0-5); Neutrophil # 5.65 X10^3/uL (2.7-7.7); Neutrophil % 61.9 % (47-70); Platelet Count 334 K/mm3 (150-450); RBC Distribution Width CV 12.9 % (11.6-14.6); RBC Distribution Width SD 42.2 fl (35.1-43.9); Red Blood Count 4.44 M/mm3 (4.2-5.4); White Blood Count 9.1 K/mm3 (4.4-11.0)
[2020-04-30 18:23] LABS: Anion Gap 5 (5-15); BUN 10 mg/dL (7-18); BUN/Creat Ratio 9.9 RATIO (10-20); Chloride 106 mmol/L (98-107); Creatinine, Serum 1.01 mg/dL (0.55-1.02); EST Glomerular Filtration Rate 70 mL/min (>60); Est Glom Filt Rate - Afr Amer 85 mL/min (>60); Estimated Creatinine Clearance 88.21 ml/min; Glucose 79 mg/dL (74-106); Potassium 3.8 mmol/L (3.5-5.1); Sodium Level 138 mmol/L (136-145)
[2020-04-30] MEDS: 0.9% Normal Saline 1,000 ML 1000 ML IV (18:30)
[2020-04-30 18:36] LABS: Bacteria 0 SEEN /hpf (None Seen); Mucous, Urine 0 SEEN /hpf (<or=2+); Red Blood Cells-Urine 0 SEEN /hpf (0-5); Squamous Epithelial Cells - UA 0 SEEN /hpf (5-10); White Blood Cells 0 SEEN /hpf (0-5)
[2020-04-30 18:42] LABS: Color, Urine Yellow (Yellow); Glucose, Dipstick Normal (Normal); Ketone-Dipstick Negative (Negative); Leukocyte Esterase-Dipstick Negative /ul (Negative); Nitrite-Dipstick Negative (Negative); Occult Blood-Urine 10 /ul (Negative); Protein-Dipstick Negative (Negative); Urine Bilirubin Dipstick Negative (Negative); Urine Clarity Clear (Clear); Urine Urobilinogen Normal (Normal)
[2020-04-30 18:43] LABS: hCG Titer Quant., Serum 1443 mIU/mL (1-3)
--- NOTE | 2020-04-30 20:27 | ED.DCSUM_ITS ---
- ER Visit Summary Date of Service: 04/30/20 Chief Complaint: Pelvic pain, vaginal bleeding, History of Present Illness: The patient is a 25 F who presents with pelvic pain and vaginal bleeding that became worse today. Patient states she started with some mild spotting but now it is dark blood. Patient admits to lower abdominal and pelvic cramping. Patient states this is localized to the suprapubic area. Patient states it has been constant throughout the day today. Patient states she is approximately 6 weeks . Patient states her last menstrual period was 03/19/2020. Patient is 1 para 0. Physical Examination: Vital signs are stable. Patient is afebrile. Patient is in no acute distress. Oral mucosa is pink and moist. Neck is supple. Trachea is midline. There is no JVD. Heart was regular rate and rhythm. Lungs are clear and equal bilateral. Abdomen is soft. Bowel sounds are normal. There is some mild suprapubic tenderness. There is no rebound or guarding noted. Cranial nerves II through XII are intact. There are no focal motor or sensory deficits. Test Results: CBC and basic metabolic profile were within normal limits. Urinalysis does not show any evidence of urinary tract infection. Blood type is B+. Quantitative hCG is 1443. Transvaginal ultrasound was obtained. There is a single live intrauterine with an estimated gestational age of 5 weeks and 5 days. Cardiac activity has a heart rate of 112. Emergency Department Course and Treatment: Reviewing patient's previous quantitative hCG levels showed that hCG level yesterday was 1467. On 04/27/2019 it was 1194. On 04/25/2019, it was 892. Patient was given Tylenol here. Patient was feeling better on reevaluation. Patient was advised of her findings. Case was discussed with Dr. Adams. She states the patient does have an appointment with their office this week. She recommended having the patient follow-up with that appointment. Patient understands and is agreeable with the plan. All questions were answered. Disposition: Discharge home Impression: 1. Threatened spontaneous This note was generated with [employer]ence[employer] software. It may contain incorrect words, spelling, and punctuation that were not noted in review of the chart prior to signing ED Disposition - Plan for ED Patient: Disposition: Home or Assisted Living Diagnosis: Threatened spontaneous Instructions: ED Possible Miscarriage ... Referrals: Jacky Preciado NP, COMMUNITY ENGAGEMENT REPRESENTATIVE-C [Primary Care Provider] - Rosaline Adams DO [STAFF PHYSICIAN] - Keep Nydia appointment
[2020-04-30] MEDS: Acetaminophen 500 MG Tablet 1000 MG PO (21:07)
[2020-04-30 21:38] VITALS: BP 98/75; PULSE 86; RESP 16; O2SAT 100
== END 2020-04-30 21:39 | disposition home or self-care (01) ==
PROVIDERS: Emergency Provider Emergency Medicine; PCP Nurse Practitioner Family
DX: O03.9 Complete or unspecified spontaneous abortion without complication (principal); Z3A.01 Less than 8 weeks gestation of pregnancy
CPT/HCPCS: 76817; 80048; 81001; 84702; 85025; 86900; 86901; 99284; J7030; A4216

== ENCOUNTER 2020-08-11 17:19 | Emergency (ER) | payer MEDICAID, SELFPAY ==
[2020-08-11 17:22] VITALS: BP 123/90; PULSE 92; RESP 20; TEMP 36.6; O2SAT 96; BMI 27.2
--- NOTE | 2020-08-11 18:26 | EDS_ITS ---
HPI HPI - GI History of Present Illness Chief Complaint: Constipation Informant: patient Abdominal Pain/Flank Pain Onset: Days Timing: Continuous Current Severity: Mild Maximum Severity: Mild Associated Symptoms Associated Symptoms: Negative for Dysuria Narrative Narrative: 25-year-old female who had a work-related right hand injury where she lost the tip of her finger. Had surgery done by hand specialist and was placed on narcotic pain medication. Said her last bowel movement was 4 days ago. The pain medication is constipated. She denies any fever. Prior similar symptoms: No Recent Illness/Hospitalization: No PFSH PFSH Medical History Irritable bowel syndrome Home Medications docusate sodium 100 mg PO DAILY 04/30/20 [History Last Taken Unknown] cefadroxil 500 mg PO BID 08/11/20 [History Last Taken Unknown] ondansetron 08/11/20 [History Last Taken Unknown] oxycodone-acetaminophen 08/11/20 [History Last Taken Unknown] Allergy/AdvReac Type Severity Reaction Status Date / Time benzonatate Allergy Shortness Verified 08/11/20 17:21 [From Tessalon Perles] of breath, Face numb ketorolac [From Toradol] Allergy Other Verified 08/11/20 17:21 tramadol Allergy Other Verified 08/11/20 17:21 metoclopramide [From Reglan] AdvReac Other Verified 08/11/20 17:21 prochlorperazine AdvReac Itching Verified 08/11/20 17:21 [From Compazine] promethazine [From Phenergan] AdvReac Other Verified 08/11/20 17:21 Family History Grandmother Hypertension CVA (cerebral vascular accident) Social History Smoking Status: Former smoker ROS ROS ED ROS Narrative Review of systems is negative except for constipation. Patient had no fever or chills. No cough no shortness of breath. No abdominal pain. Constitutional Constitutional ED: Denies fever(s) ENT ENT ED: Denies ear pain Cardiovascular Cardiovascular: Denies chest pain Respiratory/Chest Respiratory/Chest: Denies dyspnea Gastrointestinal Gastrointestinal: Reports constipation; Denies abdominal pain Genitourinary Genitourinary ED: Denies dysuria Musculoskeletal Musculoskeletal: Denies myalgias Integumentary Denies rash Neurologic Neurologic: Denies weakness Psychiatric Psychiatric: Denies depression Endocrine Endocrinology: Denies polyuria Hematologic/Lymphatic Hematologic/Lymphatic: Denies easy bruising Allergic/Immunologic Allergic/Immunologic ED: Denies urticaria EXAM Physical Exam Narrative Exam Narrative: 25-year-old no acute distress vital signs stable afebrile. HEENT exam unremarkable. Neck nontender no lymphadenopathy. Lungs clear to auscultation. Heart regular rhythm no murmur. Abdomen soft nontender normal bowel sounds no peritoneal signs. Extremities moves all 4. Well-padded dressing on right hand. Otherwise exam unremarkable. Const Vital Signs: 08/11/20 17:22 Temperature 97.9 F Temperature Source Temporal Pulse Rate 92 Respiratory Rate 20 H Blood Pressure 123/90 H Blood Pressure Mean 101 Pulse Ox 96 Oxygen Delivery Method Room Air Positive well nourished and well developed General Appearance ED: well developed HEENT normocephalic Eyes PERRL and EOMs intact bilaterally Neck no lymphadenopathy and supple Resp normal respiratory effort and clear to auscultation bilaterally Cardio regular rate, regular rhythm and no murmurs GI non-tender, non-distended and no masses Auscultation: normoactive bowel sounds Palpation: soft Extremity full ROM Neuro Sensorium / Orientation: alert, oriented to person, oriented to place and oriented to time Psych mental status grossly normal Skin Rashes: no rashes MDM MDM MDM Narrative Medical decision making narrative: Young female status post hand surgery on narcotic pain medications now constipated. Exam is benign. She will be placed on magnesium citrate at home. Stool softeners as needed. Fluids and fiber. Return if worse or follow-up if not improving. Discharge Plan Triage Chief Complaint: Constipation ED Provider: Arturo Quiles Dx/Rx/DC Orders Clinical Impression: Constipation Instructions: ED Constipation (Adult) Prescriptions: No Action docusate sodium 100 MG capsule 100 mg PO DAILY RF: 0 cefadroxil 500 mg capsule 500 mg PO BID RF: 0 oxycodone-acetaminophen 5-325 mg tablet RF: 0 ondansetron 4 mg tablet,disintegrating RF: 0 Primary Care Provider: Jacky Preciado NP Referrals: Jacky Preciado NP, ACCOUNT RETENTION REPRESENTATIVE-C [Primary Care Provider] - Activity Restrictions/Additional Instructions: To help decrease the constipation plenty of fluids especially water. Fruits, vegetables and fiber. Magnesium citrate drink the first bottle with no bowel movement within 1 to 2 hours during the second. Decrease the use of the narcotic pain medication to also decrease the constipation. Follow-up with your primary care provider if not improving. Disposition Disposition: Home, self care
[2020-08-11 18:28] VITALS: RESP 18
[2020-08-11] MEDS: Magnesium Citrate 300 ML PO (18:44)
== END 2020-08-11 18:48 | disposition home or self-care (01) ==
LOC: ED 18:45
PROVIDERS: Emergency Provider Emergency Medicine; PCP Nurse Practitioner Family
DX: K59.00 Constipation, unspecified (principal); Z87.891 Personal history of nicotine dependence
CPT/HCPCS: 99282

== ENCOUNTER → 2021-02-20 14:33 | Outpatient (CLI) | payer MEDICAID, SELFPAY ==
[2021-02-20] MEDS: 0.9% Normal Saline 1,000 ML 500 ML IV (14:52)
[2021-02-20 14:54] VITALS: BP 121/73; PULSE 98; RESP 16; TEMP 37.4; O2SAT 97
[2021-02-20] MEDS: Ondansetron 4 MG/2 ML Vial IV (15:05)
[2021-02-20 16:41] VITALS: BP 116/71; PULSE 101; RESP 16; TEMP 37.1
== END ==
PROVIDERS: PCP Nurse Practitioner Family; Referring Provider Obstetrics & Gynecology; Visit Provider Obstetrics & Gynecology
DX: O21.9 Vomiting of pregnancy, unspecified (principal); Z3A.00 Weeks of gestation of pregnancy not specified
CPT/HCPCS: 96374; J7030; A4216; J2405

== ENCOUNTER 2021-09-02 19:20 | Inpatient (IN) | payer MEDICAID, SELFPAY ==
[2021-09-02] VITALS (7 sets, daily range): BP systolic 132–137; BP diastolic 84–94; PULSE 83–90; TEMP 36.6–37.1; O2SAT 98–99; BMI 29.9
[2021-09-02] MEDS: Lactated Ringers 1,000 ML 50 ML IV (19:43)
[2021-09-02 20:07] LABS: Absolute Lymphocyte Count 1.97 X10^3/uL (0.83-4.51); Absolute Neutrophil Count 6.5 X10^3/uL (2.0-7.7); Basophil# 0.03 X10^3/uL; Basophil% 0.3 % (0-1); Eosinophil# 0.02 X10^3/uL; Eosinophils% 0.2 % (0-5); Hematocrit 31.7 % (37-47); Hemoglobin 10.2 g/dL (12.0-15.0); Lymphocyte # 1.97 X10^3/ul (0.83-4.51); Mean Corp Hgb Conc 32.2 g/dL (32-36); Mean Corpuscular Hgb 26.4 pg (27.0-32.0); Mean Corpuscular Volume 82.1 fL (81-99); Mean Platelet Vol. 10.5 fl (6.2-12.0); Monocyte# 0.79 X10^3/uL; Monocyte% 8.4 % (0-10); NRBC Flagged by Analyzer 0 % (0-5); Neutrophil # 6.53 X10^3/uL (2.7-7.7); Neutrophil % 69.5 % (47-70); Platelet Count 289 K/mm3 (150-450); RBC Distribution Width SD 44.5 fl (35.1-43.9); Red Blood Count 3.86 M/mm3 (4.2-5.4); White Blood Count 9.4 K/mm3 (4.4-11.0)
--- NOTE | 2021-09-02 20:27 | PCM.HP.OB ---
HPI - General General Date of Admission: 09/02/21 HPI Narrative JORGE ORTEGA, is a 26 F at 40w2d who presents for schedule elective induction of labor. Maternal Data Information LAURA Calculator Estimated Delivery Date Method Current WG Current Estimate 08/31/21 Ultrasound #1 40w 2d PFSH PFS Medical History Irritable bowel syndrome Home Medications docusate sodium 100 mg PO PRN PRN 04/30/20 [History Last Taken Unknown] ondansetron 4 mg PO PRN PRN 08/11/20 [History Last Taken Unknown] doxylamine-pyridoxine (vit B6) 1 tab PO DAILY 09/02/21 [History Last Taken 09/01/21 22:00] folic acid 1 mg PO DAILY 09/02/21 [History Last Taken 09/01/21 21:00] omeprazole 40 mg PO DAILY 09/02/21 [History Last Taken 09/02/21 09:00] Allergy/AdvReac Type Severity Reaction Status Date / Time benzonatate Allergy Shortness Verified 09/02/21 20:16 [From Tessalon Perles] of breath, Face numb ketorolac [From Toradol] Allergy Other Verified 09/02/21 20:16 tramadol Allergy Other Verified 09/02/21 20:16 metoclopramide [From Reglan] AdvReac Other Verified 09/02/21 20:16 prochlorperazine AdvReac Itching Verified 09/02/21 20:16 [From Compazine] promethazine [From Phenergan] AdvReac Other Verified 09/02/21 20:16 Family History Grandmother Hypertension CVA (cerebral vascular accident) Social History Smoking Status: Former smoker NST FHR Rate Baby A Baseline: 140 Variability:: Moderate Accelerations:: 15 x 15 Decelerations:: None FHR Category:: Category I Uterine Activity:: No ctx's Vital Signs Vital Signs Vital Signs: 09/02/21 20:00 09/02/21 20:01 09/02/21 20:02 Temperature 98.8 F 98.8 F Temperature Source Temporal Pulse Rate 90 Blood Pressure 132/84 H BP Systolic 132 BP Diastolic 84 Pulse Ox 99 Weight Weight: 209 lb 1.6 oz Body Mass Index (BMI) 29.9 Physical Exam Const alert and no apparent distress General Appearance: comfortable Narrative: Cvx /-2, soft, posterior Labs Labs Labs: Blood Type B POSITIVE Antibody Screen Pending Hct 31.7 % (37-47) L Hgb 10.2 g/dL (12.0-15.0) L Obstetrics US Assessment & Plan (1) 40 weeks gestation of : (2) Elective induction of labor planned: PLAN: Admit for scheduled elective induction of labor. R/b/a to an induction were discussed with patient in office and she desires to proceed - Routine intrapartum care - Mendez score of 6. Intracervical vaughn placed in usual fashion. Vaughn and Pitocin - Epidural for pain control - GBS neg - Pelvis adequate and expected EFW AGA - Anticipate vaginal delivery (3) Anemia affecting : (4) Depression affecting :
[2021-09-02] MEDS: 0.9% Normal Saline Single 100 ML IV.SOLN. INTRA-UTER (20:43)
[2021-09-02] MEDS: Ondansetron 4 MG/2 ML Vial IV (21:01)
[2021-09-02] MEDS: Acetaminophen 500 MG Tablet PO (21:50)
[2021-09-02] MEDS: fentaNYL 100 MCG/2 ML Ampul IV (23:00)
[2021-09-03] VITALS (52 sets, daily range): BP systolic 103–153; BP diastolic 54–95; PULSE 55–98; RESP 14–16; TEMP 36.3–37.7; O2SAT 95–100
[2021-09-03] MEDS: Oxytocin 30 units/NS 500 ml 30 UNITS/500 ML IV.SOLN IV (00:24)
[2021-09-03] MEDS: fentaNYL 100 MCG/2 ML Ampul IV (01:11)
[2021-09-03] MEDS: Ondansetron 4 MG/2 ML Vial IV ×2 (04:22→13:54)
[2021-09-03] MEDS: Lactated Ringers 500 ML 999 ML IV (05:25)
[2021-09-03] MEDS: fentaNYL-bupivacaine (epidural) 100 ML BAG EPIDURAL (06:43)
[2021-09-03] MEDS: Lactated Ringers 1,000 ML 200 ML IV (08:42)
[2021-09-03] MEDS: Oxytocin 30 units/NS 500 ml 30 UNITS/500 ML IV.SOLN 334 UNITS IV (11:40)
--- NOTE | 2021-09-03 12:05 | EX.PCM.OBRPT ---
Assessment & Plan (1) (spontaneous vaginal delivery): (2) 40 weeks gestation of : (3) Anemia affecting : Maternal Data Information LAURA Calculator Estimated Delivery Date Method Current WG Current Estimate 08/31/21 Ultrasound #1 40w 3d Vaginal Delivery Maternal Presentation Maternal Presentation: Elective Induction Maternal Presentation: maternal discomfort Type of Induction: Pitocin, [place] Bulb and Amniotomy Medical Reason for Induction: - Operative Information Date of Procedure: 09/03/21 Pre-Operative Diagnosis: labor Post-Operative Diagnosis: same Surgery / Procedure Performed: Spontaneous Vaginal Delivery Type of Anesthesia: Epidural Special Medications: none Drain: - (none) Estimated Blood Loss: 300 Time of Delivery: 11:39 Findings Description of Procedure: A vigorous male infant was delivered TOO over a second-degree perineal laceration. The remainder the infant was delivered with maternal pushing and gentle traction only in less than 15 seconds. The Pitocin infusion was initiated for active management of the third stage. The cord was clamped and cut after 1 minute. The was attended to by the waiting nursing staff. The placenta was delivered spontaneously and intact. The cervix and vagina were intact. The second-degree perineal laceration was repaired with 2-0 Vicryl suture in a running standard fashion. Sponge and needle counts were correct. A vaginal sweep was completed by me. Presentation: TOO Amniotic Membrane Rupture Type: Artificial Amniotic Fluid Description: Clear Placental Delivery Description: Spontaneous Placenta Disposition: [facility] Cord Vessel Description: 3 Vessels Cord Entanglement: None A Gender: Male (1 minute): 8 (5 minute): 9 Delayed Cord Clamping: Yes Post Vaginal Delivery Medications Given After Delivery: IV Pitocin Episiotomy Description: None Laceration: 2nd degree Complication Complications: None
[2021-09-03] MEDS: 0.9% Saline Lock 10 ML Syringe IV (15:39)
[2021-09-03] MEDS: Acetaminophen 500 MG Tablet 1000 MG PO ×2 (15:40→22:26)
[2021-09-03] MEDS: Ibuprofen 600 MG Tablet PO (19:32)
[2021-09-03] MEDS: Benzocaine/Lanolin/Aloe Vera 1 SPRAY EACH TOPICAL (19:33)
[2021-09-03] MEDS: Ondansetron 8 MG Tablet 4 MG PO (20:25)
[2021-09-03] MEDS: Senna/Docusate Sodium 1 Tablet PO (20:41)
[2021-09-04] VITALS (9 sets, daily range): BP systolic 118–136; BP diastolic 77–86; PULSE 81–107; RESP 16–18; TEMP 36.6–37.1; O2SAT 86–98
[2021-09-04] MEDS: Ibuprofen 600 MG Tablet PO ×3 (05:01→23:50)
[2021-09-04 05:14] LABS: Hemoglobin 9.2 g/dL (12.0-15.0); Mean Corp Hgb Conc 31.7 g/dL (32-36); Mean Corpuscular Hgb 26.4 pg (27.0-32.0); Mean Corpuscular Volume 83.3 fL (81-99); Platelet Count 192 K/mm3 (150-450); RBC Distribution Width CV 15.3 % (11.6-14.6); RBC Distribution Width SD 46.6 fl (35.1-43.9); Red Blood Count 3.48 M/mm3 (4.2-5.4); White Blood Count 17.4 K/mm3 (4.4-11.0)
--- NOTE | 2021-09-04 11:53 | PCM.PN.OB ---
Subjective Subjective Denies complaints Objective Data Objective Data Vital Signs: Vital Signs Temp Pulse Resp BP Pulse Ox 97.8 F 87 18 129/86 H 97 09/04/21 08:50 09/04/21 08:50 09/04/21 08:50 09/04/21 08:50 09/04/21 08:50 Oxygen Delivery Method Room Air Weight: 209 lb 1.6 oz Body Mass Index (BMI) 29.9 Intake & Output: Intake and Output for Last 24 Hours 09/02/21 09/03/21 09/04/21 23:59 23:59 23:59 Intake Total 2667.06 / 2667.06 Output Total 1890 / 1890 Balance 777.06 / 777.06 Lab / Micro Data Result Diagrams: 09/04/21 05:08 Labs: Laboratory Results - last 24 hr 09/04/21 05:08: WBC 17.4 H, RBC 3.48 L, Hgb 9.2 L, Hct 29.0 L, MCV 83.3, MCH 26.4 L, MCHC 31.7 L, RDW Std Deviation 46.6 H, RDW Coeff of Elizabeth 15.3 H, Plt Count 192, MPV 10.0 Micro: Microbiology 09/02/21 19:45 Nasal Secretion SARS-CoV-2 Antigen (Rapid) - Final Physical Exam Const alert, oriented x3 and no apparent distress HEENT normocephalic GI soft to palpation, non-tender and non-distended GI Narrative: fundus firm, mid & below umbilicus Extremity normal to inspection and no calf tenderness Assessment & Plan (1) (spontaneous vaginal delivery): COMMENT: PPD#1 PLAN: Routine care (2) Anemia affecting : QUALIFIERS: Trimester: unspecified trimester Qualified Code(s): O99.019 - Anemia complicating , unspecified trimester PLAN: CBC reviewed continue iron
[2021-09-04] MEDS: Ferrous Sulfate 325 MG Tablet PO (13:51)
[2021-09-04] MEDS: Senna/Docusate Sodium 1 Tablet PO (13:51)
[2021-09-04] MEDS: Ondansetron 8 MG Tablet 4 MG PO (15:44)
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
[2021-09-04] MEDS: Acetaminophen 500 MG Tablet 1000 MG PO (21:13)
[2021-09-05] VITALS (57 sets, daily range): BP systolic 113–182; BP diastolic 71–114; PULSE 75–144; RESP 16–18; TEMP 36.4–37.8; O2SAT 87–100
--- NOTE | 2021-09-05 00:05 | NURSING ---
Pt used call light to report that she felt like she was having a reaction. This RN went into room where pt was shaking, sweating,thrashing in the bed, pale, breathing fast, short of breath, and stated that this all started while she was baby. She reported that both her breasts hurt/burn and she felt cold and started shaking. Pts bp 146/87, HR 127, temp 99.0. HR 120-140 and O2 91-74%-10L non rebreather applied. This RN called Dr. Headley to see if she could come and assess pt. Verbal order from Dr. Headley to Matty for CBC, CMP and CT of chest. IV in right hand started. Pt continued to c/o bilateral breast pain along with chest tightness. Pt O2 100% on 10L, decreased to 5L non rebreather and O2 at 98-100%. Weaned to room air and O2 98%. This RN and Matty transported pt to CT via bed. Once back in room, Dr. Headley assessed pt at bedside.
--- NOTE | 2021-09-05 00:28 | CT_ITS ---
STUDY: CTA CHEST REASON FOR EXAM: Female, 26 years old. rule out PE while breast feeding patient had hot flash to chest, increased heart rate and sob, decreased 02 stats RADIATION DOSAGE (If Supplied By Facility): CTDIvol = ( 14.63 ) mGy, DLP = ( 479.49 ) mGycm TECHNIQUE: The examination was performed with the intravenous administration of IV 100mL Isovue-370. Post-processing of the angiographic images was performed, with multiplanar reformation and 3D reconstruction. Individualized dose optimization techniques were used for this CT. COMPARISON: None. LIMITATIONS: Image degradation from respiratory motion. FINDINGS: LUNGS: No consolidation. PLEURA: No pleural effusion. No pneumothorax. PULMONARY VESSELS: No definite pulmonary emboli identified. MEDIASTINUM: Unremarkable. HEART: Not enlarged. AORTA/GREAT VESSELS: Thoracic aorta is normal caliber. No aneurysm or dissection. UPPER ABDOMEN: No acute findings. BONES/SOFT TISSUES: No acute findings. OTHER: None. CT/CTA Chest W/WO Contrast IMPRESSION: No definite evidence of pulmonary emboli. Electronically Signed: Rossy Calderón MD at 3:25 EDT ,
[2021-09-05 00:50] LABS: Absolute Lymphocyte Count 1.73 X10^3/uL (0.83-4.51); Absolute Neutrophil Count 9.4 X10^3/uL (2.0-7.7); Basophil# 0.02 X10^3/uL; Basophil% 0.2 % (0-1); Eosinophil# 0.02 X10^3/uL; Eosinophils% 0.2 % (0-5); Hemoglobin 9.2 g/dL (12.0-15.0); Lymphocyte # 1.73 X10^3/ul (0.83-4.51); Lymphocyte % 14.5 % (19-41); Mean Corp Hgb Conc 31.7 g/dL (32-36); Mean Corpuscular Hgb 26.4 pg (27.0-32.0); Mean Corpuscular Volume 83.1 fL (81-99); Mean Platelet Vol. 9.7 fl (6.2-12.0); Monocyte# 0.67 X10^3/uL; Monocyte% 5.6 % (0-10); NRBC Flagged by Analyzer 0 % (0-5); Neutrophil # 9.42 X10^3/uL (2.7-7.7); Neutrophil % 78.8 % (47-70); Platelet Count 221 K/mm3 (150-450); RBC Distribution Width CV 15.3 % (11.6-14.6); Red Blood Count 3.49 M/mm3 (4.2-5.4); White Blood Count 11.9 K/mm3 (4.4-11.0)
[2021-09-05 01:06] LABS: ALB/GLOB Ratio 0.6 RATIO (0.9-2.4); AST(SGOT) 19 U/L (15-37); Alanine Aminotransfer ALT/SGPT 16 U/L (13-56); Albumin, Serum 2.4 g/dL (3.2-5.0); Alkaline Phosphatase 140 U/L (45-117); Anion Gap 8 (5-15); BUN 7 mg/dL (7-18); BUN/Creat Ratio 9.9 RATIO (10-20); Calcium,Total 8.9 mg/dL (8.5-10.1); Chloride 106 mmol/L (98-107); Creatinine, Serum 0.71 mg/dL (0.55-1.02); EST Glomerular Filtration Rate 105 mL/min (>60); Est Glom Filt Rate - Afr Amer 127 mL/min (>60); Estimated Creatinine Clearance 128.71 ml/min; Globulin 4.3 g/dL (2.2-4.2); Glucose 74 mg/dL (74-106); Potassium 4.4 mmol/L (3.5-5.1); Protein, Total 6.7 g/dL (6.4-8.2); Sodium Level 139 mmol/L (136-145)
--- NOTE | 2021-09-05 01:17 | PN.OBGYN_ITS ---
Subjective Subjective Called by RN for patient's complaint of SOB. Patient states she was nursing and developed bilateral breast pain. She then felt shakey and had some SOB. After that the had some chest discomfort. Now she is back from CT and denies complaints other than feeling tired. Objective Data Objective Data Vital Signs: Vital Signs Temp Pulse Resp BP Pulse Ox 98.8 F 106 H 16 133/76 H 97 09/05/21 01:03 09/05/21 01:14 09/04/21 19:45 09/05/21 01:14 09/05/21 01:13 Oxygen Delivery Method Room Air Weight: 209 lb 1.6 oz Body Mass Index (BMI) 29.9 Intake & Output: Intake and Output for Last 24 Hours 09/03/21 09/04/21 09/05/21 23:59 23:59 23:59 Intake Total 2667.06 / 2667.06 Output Total 1890 / 1890 Balance 777.06 / 777.06 Lab / Micro Data Result Diagrams: 09/05/21 00:40 09/05/21 00:40 Labs: Laboratory Results - last 24 hr 09/04/21 05:08: WBC 17.4 H, RBC 3.48 L, Hgb 9.2 L, Hct 29.0 L, MCV 83.3, MCH 26.4 L, MCHC 31.7 L, RDW Std Deviation 46.6 H, RDW Coeff of Elizabeth 15.3 H, Plt Count 192, MPV 10.0 09/05/21 00:40: WBC 11.9 H, RBC 3.49 L, Hgb 9.2 L, Hct 29.0 L, MCV 83.1, MCH 26.4 L, MCHC 31.7 L, RDW Std Deviation 46.0 H, RDW Coeff of Elizabeth 15.3 H, Plt Count 221, MPV 9.7, Immature Gran % (Auto) 0.700, Neut % (Auto) 78.8 H, Lymph % (Auto) 14.5 L, [place] % (Auto) 5.6, Eos % (Auto) 0.2, Baso % (Auto) 0.2, Absolute Neuts (auto) 9.4 H, Absolute Lymphs (auto) 1.73, Nucleated RBC % 0 09/05/21 00:40: Sodium 139, Potassium 4.4, Chloride 106, Carbon Dioxide 25.0, Anion Gap 8, BUN 7, Creatinine 0.71, Estim Creat Clear Calc 128.71, Est GFR (MDRD) Af Amer 127, Est GFR (MDRD) Non-Af 105, BUN/Creatinine Ratio 9.9 L, Glucose 74, Calcium 8.9, Total Bilirubin 0.20, AST 19, ALT 16, Alkaline Phosphatase 140 H, Total Protein 6.7, Albumin 2.4 L, Globulin 4.3 H, Albumin/Globulin Ratio 0.6 L Micro: Microbiology 09/02/21 19:45 Nasal Secretion SARS-CoV-2 Antigen (Rapid) - Final Physical Exam Const alert, oriented x3 and no apparent distress Chest inspection of chest normal Resp normal respiratory effort, no retractions and clear to auscultation bilaterally Cardio regular rate and regular rhythm GI soft to palpation, non-tender and non-distended GI Narrative: ff mid & below umb Assessment & Plan (1) (spontaneous vaginal delivery): COMMENT: PPD#2 PLAN: 26yo female with SOB on PPD#2 Patient had elevated temp of 100, O2 sat of 87 and tachycardia. Symptoms im proved with oxygen. Stat Labs & CTPE ordered. Concern for acute pulmonary event vs panic attack. Patient now is feeling well. Await CTPE results.
--- NOTE | 2021-09-05 07:48 | PCM.PN.OB ---
Subjective Subjective She is doing well. She denies lightheadedness, dizziness, chest pain, shortness of breath, leg pain, palpitations. She feels well this morning. She feels she may have had a panic attack. She reports history of depression and anxiety. She is ambulating and voiding without difficulty. She is tolerating a diet without nausea or vomiting. Lochia is normal. Desires discharge today. Objective Data Objective Data Vital Signs: Vital Signs Temp Pulse Resp BP Pulse Ox 99.0 F 89 16 130/74 H 97 09/05/21 02:44 09/05/21 02:44 09/05/21 02:44 09/05/21 02:44 09/05/21 02:44 Oxygen Delivery Method Room Air Weight: 209 lb 1.6 oz Body Mass Index (BMI) 29.9 Intake & Output: Intake and Output for Last 24 Hours 09/03/21 09/04/21 09/05/21 23:59 23:59 23:59 Intake Total 2667.06 / 2667.06 Output Total 1890 / 1890 Balance 777.06 / 777.06 Lab / Micro Data Result Diagrams: 09/05/21 00:40 09/05/21 00:40 Labs: Laboratory Results - last 24 hr 09/05/21 00:40: WBC 11.9 H, RBC 3.49 L, Hgb 9.2 L, Hct 29.0 L, MCV 83.1, MCH 26.4 L, MCHC 31.7 L, RDW Std Deviation 46.0 H, RDW Coeff of Elizabeth 15.3 H, Plt Count 221, MPV 9.7, Immature Gran % (Auto) 0.700, Neut % (Auto) 78.8 H, Lymph % (Auto) 14.5 L, [place] % (Auto) 5.6, Eos % (Auto) 0.2, Baso % (Auto) 0.2, Absolute Neuts (auto) 9.4 H, Absolute Lymphs (auto) 1.73, Nucleated RBC % 0 09/05/21 00:40: Sodium 139, Potassium 4.4, Chloride 106, Carbon Dioxide 25.0, Anion Gap 8, BUN 7, Creatinine 0.71, Estim Creat Clear Calc 128.71, Est GFR (MDRD) Af Amer 127, Est GFR (MDRD) Non-Af 105, BUN/Creatinine Ratio 9.9 L, Glucose 74, Calcium 8.9, Total Bilirubin 0.20, AST 19, ALT 16, Alkaline Phosphatase 140 H, Total Protein 6.7, Albumin 2.4 L, Globulin 4.3 H, Albumin/Globulin Ratio 0.6 L Micro: Microbiology 09/02/21 19:45 Nasal Secretion SARS-CoV-2 Antigen (Rapid) - Final Radiography Diagnostic Testing: Radiology Impression Chest CTA 09/05/21 00:28 IMPRESSION: No definite evidence of pulmonary emboli. Electronically Signed: Rossy Calderón MD at 3:25 EDT , Physical Exam Const alert and no apparent distress General Appearance: comfortable HEENT normocephalic Resp normal respiratory effort GI soft to palpation and non-distended GI Narrative: ATTP, FF@U-1 Extremity no calf tenderness Assessment & Plan (1) (spontaneous vaginal delivery): PLAN: Doing well . Reviewed negative CT scan and unremarkable labs. Discussed likely panic attack. Social work to see her today, and help her establish with a counselor. Discussed discussed importance of establishing with a counselor and having routine follow-up given her history of depression and anxiety. She desires discharge today. Instructions reviewed. To follow-up in the office within a week or 2. (2) Depression with anxiety:
--- NOTE | 2021-09-05 07:52 | DCINST_ITS ---
Discharge Instructions Diet Discharge Diet: No restrictions Activity Discharge Activity: May Shower May resume sexual activity in: 6 weeks Ice area for (Minutes): 15 Weight Bearing Status: Weight bearing as tolerated Lifting Restrictions: nothing heavier than baby Dressing / Incision Call your doctor if your incision/area has: Continuous Slow Oozing, Sudden Increased Bleeding, Increased Pain/ Swelling, Increased Redness, Foul Smelling Discharge and Swelling at the incision site Call your doctor if you observe: Fever of 101 or Higher, Coldness, Increased Pain, Numbness or Tingling, Change in Color, Inability to urinate, Inability to have a bowel movement, Using more than 1 pad per hour, Shortness of breath, Dizziness, Fainting spells, Swelling in the ankles, Chest pain, Increased palpitations (irregular heartbeat), Calf discomfort and Uncontrolled pain Follow Up Care When: 1-2 weeks early visit - can be virtual 6 week visit in office Test Results: Test results from this visit will be discussed in further detail at your follow-up appointment, if applicable. Discharge Plan Admission Admit Date/Time: 09/02/21 19:20 Primary Reason for Your Visit: delivery Attending Provider: Ara Reeves Primary Care Provider: Jacky Preciado NP Instructions Patient Instructions: After a Vaginal Discharge Orders/Prescriptions Prescriptions: Continued docusate sodium 100 MG capsule 100 mg PO PRN PRN (Reason: Constipation) RF: 0 Discontinued ondansetron 4 mg tablet,disintegrating 4 mg PO PRN PRN (Reason: Nausea) RF: 0 omeprazole 40 mg Capsule,Delayed Release(Dr/Ec) 40 mg PO DAILY RF: 0 folic acid 1 mg Tablet 1 mg PO DAILY RF: 0 doxylamine-pyridoxine (vit B6) 10-10 mg Tablet,Delayed Release (Dr/Ec) 1 tab PO DAILY RF: 0 Referrals / Follow Up: Jacky Preciado NP, RETAIL ASSISTANT STORE MANAGER-C [Primary Care Provider] - Disposition Disposition (needs filled in before D/C Order can be placed): Home, Self Care
[2021-09-05] MEDS: Ibuprofen 600 MG Tablet PO (08:54)
[2021-09-05] MEDS: Ondansetron 8 MG Tablet 4 MG PO (08:55)
[2021-09-05] MEDS: Acetaminophen 500 MG Tablet 1000 MG PO (14:37)
[2021-09-05] MEDS: Ferrous Sulfate 325 MG Tablet PO (14:37)
--- NOTE | 2021-09-05 14:45 | NURSING ---
Pt. doing well with today - needs some encouragement to wake babe and keep stimulated for feeds, but is very appropriate and attentive. FOB is very confident in and in his knowledge of infant care.
--- NOTE | 2021-09-05 16:00 | CASEMGMT ---
Social Work Labor and Delivery Unit This fha underwriter received report from nursing staff regarding mother of baby (MOB) appearing to have a panic attack in the late night of 09/04/2021 and retail equipment associate hours of 09/05/2021. Met with the MOB, along with the father of baby (FOB) in room. Introduced to self to the FOB. MOB spontaneously shared with this fha underwriter that appeared to have experienced a panic attack last night. MOB reports that breast-feeding was causing some stress, but is feeling more relieved knowing that can supplement with formula and that MOB is not a failure. This fha underwriter reinforced to the MOB that it is MOB's decision on how she feeds her baby, and that staff is present to support MOB's decision. Again MOB indicated feeling more relief knowing to have the option of supplementing if needed. MOB discussed having some negative thoughts symptoms, and this fha underwriter observed the FOB to provide appropriate and positive feedback to the MOB. This fha underwriter explored counseling at time of discharge, which the MOB still voices agreement. MOB admits however did not take too much of a look at what this fha underwriter provided as far as options. MOB states intent to look at the resource information and call and make her own appointment. Declines desire for this fha underwriter to assist at this point. Educated MOB to [facility] behavioral health program and specifically the intensive outpatient level of care, as another option for more intense intervention if needed. MOB accepted a brochure on this program. MOB denies any other concerns with home-going. The FOB reports will be off for about 4 weeks to help with the transition home with the baby. FOB's older children will also not be in the home right away, which will also allow for some more quiet transition home with the baby. MOB attended to the during social work visit, and was appropriate. MOB was calm, cooperative, with good eye contact during social work visit. MOB able to communicate coping skills and reports that talking to the FOB is a big help when MOB is having negative thinking. Plan: MOB and will discharge home with support from the FOB. Help me grow referral to be made. MOB has been provided information on mood and anxiety disorders, resource list for [facility] including maternal depression network information, and [facility] behavioral health program. Other than help me grow referral no other social science instructor requested or indicated. -JA Marin, CLEAN UP PERSON *This note was generated with LikeAndyation software. It may contain incorrect words, spelling, and punctuation that were not noted in review of the chart prior to signing*
--- NOTE | 2021-09-07 13:29 | CM.ED ---
Social Work Labor and Delivery unit Help me grow referral submitted through the [facility] assisted care web-based referral system. [] No other services requested or indicated. -JA Marin, MECHANICAL ASSEMBLER. *This note was generated with Neocutis dictation software. It may contain incorrect words, spelling, and punctuation that were not noted in review of the chart prior to signing*
== END 2021-09-05 16:35 | disposition home or self-care (01) | DRG 560 ==
PROVIDERS: Obstetrics & Gynecology; Admitting Provider Obstetrics & Gynecology; PCP Nurse Practitioner Family; Visit Provider Obstetrics & Gynecology
DX: O48.0 Post-term pregnancy (principal); Z37.0 Single live birth; O99.344 Other mental disorders complicating childbirth; F41.8 Other specified anxiety disorders; O26.893 Other specified pregnancy related conditions, third trimester; O99.02 Anemia complicating childbirth; Z87.891 Personal history of nicotine dependence; O70.1 Second degree perineal laceration during delivery; Z3A.40 40 weeks gestation of pregnancy
CPT/HCPCS: 59025; 59050; 71275; 80053; 85025; 85027; 86850; 86900; 86901; 87426; 99218; J7120; Q9967; A4216; G0378; J2405